=== PATIENT | female | born 1945 | race Caucasian/White ===

== ENCOUNTER 2021-09-01 11:30 | Emergency (ER) | payer MEDICARE, SELFPAY ==
--- NOTE | ~2021-09-01 | XR_ITS ---
EXAMINATION: XR chest 1V portable 09/01/2021 14:10 INDICATION: Leg cramps. Dyspnea. PROCEDURE: AP portable chest COMPARISON: No prior studies for comparison. FINDINGS: The lungs are clear. The cardiomediastinal silhouette is within normal limits. There are no pleural effusions. There is no pneumothorax suspected. IMPRESSION: 1: NO ACUTE CARDIOPULMONARY DISEASE. Reviewed, dictated and finalized at location B. M SPECIALIST
[2021-09-01 11:39] VITALS: BP 151/86; PULSE 84; RESP 18; TEMP 36.7; O2SAT 96
--- NOTE | 2021-09-01 13:38 | ED.EXTPRO ---
HPI - Extremity Problem General Chief complaint: Extremity Problem,Nontraumatic Stated complaint: Cramping of lower extremities, hx. of parkinsons Time Seen by Provider: 09/01/21 13:34 Source: patient Limitations: no limitations History of Present Illness HPI Narrative: Patient presents with not able to sleep for the last few days. Intermittent lower legs cramps for months. History of parkinsonism last time was seen by her neurologist every 2020, patient is fully vaccinated for COVID-19, feels dehydrated. Patient feels that her medication is not working. Patient is fully vaccinated for COVID-19. Related Data Allergies Allergy/AdvReac Type Severity Reaction Status Date / Time Sulfa (Sulfonamide AdvReac Dry Eye Verified 09/01/21 12:52 Antibiotics) Review of Systems Review of Systems: CONSTITUTIONAL: Denies fever, chills, or sweats. EYES: Denies visual changes, redness, or discharge. ENT: Denies rhinorrhea, congestion, sore throat, or otalgia. CARDIOVASCULAR: Denies chest pain, palpitations, or edema. RESPIRATORY: Denies cough or dyspnea. GASTROINTESTINAL: Denies abdominal pain, nausea, vomiting, or diarrhea. GENITOURINARY: Denies dysuria or hematuria. SKIN: Denies rash or itching. MUSCULOSKELETAL: Denies back pain, joint pain, or myalgia. NEUROLOGIC: Denies headache, numbness, or weakness. PSYCHIATRIC: Denies anxiety or depression. Exam Narrative: General appearance: Well-developed, well-nourished, restless, stationary tremors Skin: Normal color Head: Normocephalic, nontraumatic Eyes: Clear conjunctiva ENT: Oropharynx normal, ears normal, nose normal Neck: Supple, nontender Chest and respiratory: Airway patent, no respiratory distress, no accessory muscle use Heart: Regular rate/rhythm Abdomen: Soft, nontender, no organomegaly, quiet bowel sounds Vascular: Normal peripheral pulses, normal capillary refill. Musculoskeletal: Slight diffuse tenderness of the lower legs below the knee bilaterally, no bruises, no swelling, no hardening of the calf muscles or localized tenderness. Neurologic: Alert and oriented ?3, CERAMIC SAW TENDER is normal as tested, no gross motor deficit Course Course Emergency Course: Stable Vital Signs Vital signs: Vital Signs Temperature 36.7 C 09/01/21 11:39 Pulse Rate 84 09/01/21 11:39 Respiratory Rate 18 09/01/21 11:39 Blood Pressure 151/86 H 09/01/21 11:39 Pulse Oximetry 96 09/01/21 11:39 Temperature 36.7 C 09/01/21 11:39 Pulse Rate 84 09/01/21 11:39 Respiratory Rate 18 09/01/21 11:39 Blood Pressure 151/86 H 09/01/21 11:39 Pulse Oximetry 96 09/01/21 11:39 MDM - Extremity (Nontraumatic) MDM Narrative Medical decision making narrative: Progression of parkinsonism, depression and insomnia are my concern. Labs, chest x-ray, UA ordered, Valium 5 mg IV ordered. Differential Diagnosis Differential diagnosis: Likely other (Electrolyte imbalance, progression of parkinsonism, depression and insomnia) Critical Care Time Critical Care Time Critical Care Time: Yes Total Critical Care Time: 35 Discharge Plan Discharge Follow-up/Referrals: PHYSICIAN NOT ON STAFF,NONSTAFF [Primary Care Provider] -
--- NOTE | 2021-09-01 14:07 | PC.NURSE ---
Xray at bedside.
[2021-09-01] MEDS: diazePAM INJ (*CRX) 10 MG/2 ML SYRINGE 5 MG IV PUSH (14:13)
[2021-09-01] MEDS: SODIUM CHLORIDE 0.9% IV 1,000 ML 999 ML IV CONT (14:13)
[2021-09-01 14:24] LABS: Basophils Percent Auto 0.5 % (0.2-1.2); Eosinophils Percent Auto 0.4 % (0-4.4); Hematocrit 37.4 % (37.0-47.0); Immature Granulocyte Absolute 0.02 K/mm3 (0.00-0.031); Immature Granulocyte Percent A 0.4 % (0-0.5); Lymphocytes Absolute Auto 0.81 K/mm3 (0.9-3.2); Lymphocytes Percent Auto 14.2 % (18.3-44.2); Mean Corpuscular HGB Conc 32.1 g/dl (32-36); Mean Corpuscular Hemoglobin 30.5 pg (26-34); Mean Corpuscular Volume 95.2 fl (80-100); Mean Platelet Volume 9.7 fl (7.4-10.4); Monocytes Absolute Auto 0.4 K/mm3 (0.1-0.6); Monocytes Percent Auto 6.3 % (2.6-8.5); Neutrophils Absolute Auto 4.5 K/mm3 (1.3-6.7); Neutrophils Percent Auto 78.2 % (45.5-73.1); Platelet Count Result 299 k/mm3 (150-375); Red Blood Count 3.93 M/mm3 (4.2-5.4); Red Cell Distribution Width 13.8 % (11.5-14.5); White Blood Count 5.7 K/mm3 (4.5-10.0)
[2021-09-01 14:37] LABS: Alanine Aminotransferase 6 U/L (4-35); Albumin Level 4.3 g/dL (3.5-5.1); Alkaline Phosphatase 67 U/L (38-126); Anion Gap 6 mmol/L (8-16); Aspartate Amino Transferase 18 U/L (14-36); Bilirubin,Total 1.3 mg/dL (0.2-1.3); Blood Urea Nitrogen 19 mg/dL (7-17); Calcium 9.1 mg/dL (8.4-10.2); Carbon Dioxide 26 mmol/L (22-30); Chloride 99 mmol/L (98-107); Creatine Kinase 49 U/L (30-135); Estimated CRCL calculation 56 ml/min; Estimated Glomerular Filt Rate > 60; Glucose 97 mg/dL (65-110); Potassium 3.9 mmol/L (3.4-5.0); Sodium 131 mmol/L (137-145)
[2021-09-01 15:00] LABS: Add Urine Microscopic? YES; Appearance Urine Clear (Clear); Bilirubin Urine Negative (Negative); Blood Urine 1+ (Negative); Color Urine Yellow (Yellow); Glucose Urine UA Negative (Negative); Ketones Urine Trace mg/dL (Negative); Leukocyte Esterase Ur Negative LEU/UL (Negative); Nitrate Urine Negative (Negative); Protein Urine Negative (Negative); RBC Urine 0-2 /hpf (0-2); Specific Grav Ur 1.012 (1.001-1.035); Urobilinogen Urine Negative mg/dL (<2.0); WBC Urine 0-3 /hpf
[2021-09-01 15:40] VITALS: BP 150/78; PULSE 83; RESP 16; O2SAT 100
== END 2021-09-01 17:01 | disposition home or self-care (01) ==
PROVIDERS: Emergency Provider Emergency Medicine
DX: G20 Parkinson's disease (principal); R32 Unspecified urinary incontinence
CPT/HCPCS: 36415; 51701; 71045; 80053; 81001; 82550; 83735; 85025; 96361; 96374; 99284; J3360; J7030

== ENCOUNTER 2023-09-04 20:05 | Emergency (ER) | payer MEDICARE, SELFPAY ==
[2023-09-04] VITALS (15 sets, daily range): BP systolic 98; BP diastolic 62; PULSE 78–94; RESP 14–20; TEMP 36.6; O2SAT 94–98
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
--- NOTE | ~2023-09-04 | CT_ITS ---
EXAMINATION: CT abdomen pelvis w con DATE: 09/05/2023 01:55 INDICATION: Fall with possible free air on prior chest radiograph. TECHNIQUE: Computed tomography (CT) of the abdomen and pelvis was performed with 100 mL Omnipaque-350 intravenous contrast. Automated exposure control and iterative reconstruction technique were employe d. The dose-length product was 254.74 mGy-cm. COMPARISON: None FINDINGS: Dependent predominant atelectasis with corresponding volume loss in the bilateral lower lobes, left g reater than right. Heart size is normal. Aortic valve calcification. No pericardial effusion. There a re few scattered hepatic cysts the largest measuring 1.1 cm maximal diameter. Mild intra and extra he patic biliary ductal dilation which is within normal limits post cholecystectomy with surgical clips the gallbladder fossa. Spleen, pancreas and right adrenal gland are normal. There is some thickening of the left adrenal gland without a discrete nodule. Bilateral kidneys are normal. Bladder is normal. There are prominent gonadal veins which can be seen with pelvic vascular congestion syndrome along b oth the left and right sides of the atrophic normal for age uterus. There is moderate colonic diverti culosis with a sigmoid predominance and without adjacent inflammatory change to suggest diverticuliti s. No abnormal bowel wall thickening, obstruction or pneumatosis. No free intraperitoneal gas or flu id. No pathologically enlarged abdominal or pelvic lymphadenopathy. Small amount of scattered athero sclerotic plaque along the normal caliber abdominal aorta and common iliac arteries. Mild lower lumba r levocurvature and cephalad thoracolumbar dextrocurvature with moderate spondylosis. IMPRESSION: 1. No free intraperitoneal gas or other acute intra-abdominal/pelvic process. The curvilinear density seen at the lung bases on the prior radiograph appear to correspond to the fissures. Reviewed, dictated and finalized at location A. OBIAL SPECIALIST IMPRESSION: 1. No free intraperitoneal gas or other acute intra-abdominal/pelvic process. T he curvilinear density seen at the lung bases on the prior radiograph appear to correspond to the fissures.
--- NOTE | ~2023-09-04 | CT_ITS ---
EXAMINATION: CT brain wo con DATE: 09/04/2023 21:01 INDICATION: Status post fall. Head injury. TECHNIQUE: Computed tomography (CT) of the head was performed without intravenous contrast. The dose- length product was 756.67 mGy-cm. Automated exposure control and iterative reconstruction technique w ere employed. COMPARISON: None FINDINGS: Generalized atrophy. There are scattered mild periventricular and subcortical white matter changes, most likely related to small vessel ischemic disease (microangiopathy). No acute intracrania l hemorrhage, infarction, mass or mass effect. Right parietal scalp swelling. No depressed skull frac tures. IMPRESSION: 1. No acute intracranial abnormality. Reviewed, dictated and finalized at location A. ACING TECHNICIAN
--- NOTE | ~2023-09-04 | CT_ITS ---
EXAMINATION: CT cervical spine wo con DATE: 09/04/2023 21:02 INDICATION: Neck pain after fall. TECHNIQUE: Computed tomography (CT) of the cervical spine was performed without intravenous contrast. The dose-length product was 110 mGy-cm. Automated exposure control and iterative reconstruction tech nique were employed. COMPARISON: None FINDINGS: Straightening of cervical lordosis. There is degenerative anterolisthesis at C3-4 and C4-5. There is degenerative retrolisthesis at C5-6 and C6-7 with anterolisthesis at C7-T1. Odontoid proces s within normal limits. There is mild superior endplate compression deformity of T2, age indeterminat e. Lung apices are normal. Lung apices are normal. There is moderate multilevel facet and uncinate hy pertrophy. IMPRESSION: 1. Age-indeterminate mild superior endplate compression deformity of T2. Consider correlation with MR I. 2: Severe cervical spondylosis. Reviewed, dictated and finalized at location A. MAKER IMPRESSION: 1. Age-indeterminate mild superior endplate compression deformity of T2. Consid er correlation with MRI. 2: Severe cervical spondylosis.
--- NOTE | ~2023-09-04 | XR_ITS ---
XR chest 1V 09/04/2023 21:04 Indication: Cough. Status post fall. Procedure: AP portable chest Comparison: 09/01/2021 Findings: Heart size normal. No focal air space disease, pulmonary edema, pleural effusion or suspect ed pneumothorax. There are are thin pleural reflections at the lung bases, suspicious for free intrap eritoneal air Impression: 1: Possible free intraperitoneal air beneath the diaphragm. Consider correlation with CT abdomen. Reviewed, dictated and finalized at location A. ITALIST PHYSICIAN Impression: 1: Possible free intraperitoneal air beneath the diaphragm. Consider correlatio n with CT abdomen.
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
--- NOTE | 2023-09-04 20:26 | ECG_ITS ---
Measurements Intervals Davy Rate: 81 P: 36 WY: 153 QRS: 0 QRSD: 93 T: 40 QT: 343 QTc: 399 Interpretive Statements SINUS RHYTHM BASELINE ARTIFACT POSSIBLE LEFT ATRIAL ENLARGEMENT POSSIBLE LEFT VENTRICULAR HYPERTROPHY BORDERLINE ECG NO PREVIOUS ECG AVAILABLE FOR COMPARISON Electronically Signed On 09-05-2023 11:52:42 TOOLMAN by Ramesh Graham M.D.
[2023-09-04] MEDS: LORazepam INJ (*CRX) 2 MG/ML VIAL 1 MG IV PUSH (20:41)
[2023-09-04 20:49] LABS: Basophils Percent Auto 0.4 % (0.2-1.2); Eosinophils Absolute Auto 0.1 K/mm3 (0-0.3); Eosinophils Percent Auto 0.9 % (0-4.4); Hemoglobin 11.1 g/dL (12.0-15.0); Immature Granulocyte Absolute 0.02 K/mm3 (0.00-0.031); Immature Granulocyte Percent A 0.3 % (0-0.5); Lymphocytes Absolute Auto 1.39 K/mm3 (0.9-3.2); Lymphocytes Percent Auto 20.4 % (18.3-44.2); Mean Corpuscular HGB Conc 31.7 g/dl (32-36); Mean Corpuscular Hemoglobin 31.7 pg (26-34); Mean Platelet Volume 9.9 fl (7.4-10.4); Monocytes Absolute Auto 0.6 K/mm3 (0.1-0.6); Monocytes Percent Auto 8.4 % (2.6-8.5); Neutrophils Absolute Auto 4.7 K/mm3 (1.3-6.7); Neutrophils Percent Auto 69.6 % (45.5-73.1); Platelet Count Result 309 k/mm3 (150-375); White Blood Count 6.8 K/mm3 (4.5-10.0)
[2023-09-04] MEDS: ceFAZolin 2 GM/D5W 50 ML 2 GM/50 ML BAG IVPB (21:50)
[2023-09-04] MEDS: TETANUS,DIPHTHERIA,AC PERTUSSIS ADULT (0.5 ML) BOOSTRIX IM (21:55)
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
[2023-09-05] VITALS (10 sets, daily range): BP systolic 134; BP diastolic 97; PULSE 74–91; RESP 14–18; O2SAT 98–99
[2023-09-05 00:22] LABS: Appearance Urine Clear (Clear); Bacteria Urine None Seen /hpf; Bilirubin Urine Negative (Negative); Blood Urine Negative (Negative); Color Urine Yellow (Yellow); Glucose Urine UA Negative (Negative); Ketones Urine Trace mg/dL (Negative); Leukocyte Esterase Ur Trace LEU/UL (Negative); Nitrate Urine Negative (Negative); Non Pathogenic Casts 0-2; Protein Urine Negative (Negative); RBC Urine 0-2 /hpf (0-2); Specific Grav Ur 1.016 (1.001-1.035); Squamous Epithelial Cell Urine None seen /hpf (Few); Urobilinogen Urine 0.2 mg/dL (<2.0); WBC Urine 0-5 /hpf
[2023-09-05 00:48] LABS: Add Urine Microscopic? YES
[2023-09-05 01:17] LABS: Alanine Aminotransferase 7 U/L (6-35); Albumin Level 4.1 g/dL (3.5-5.1); Alkaline Phosphatase 58 U/L (38-126); Anion Gap 8 mmol/L (8-16); Aspartate Amino Transferase 34 U/L (14-36); Bilirubin,Total 1.2 mg/dL (0.2-1.3); Blood Urea Nitrogen 25 mg/dL (7-17); Calcium 8.8 mg/dL (8.4-10.2); Carbon Dioxide 26 mmol/L (22-30); Chloride 103 mmol/L (98-107); Estimated CRCL calculation 47 ml/min; Estimated Glomerular Filt Rate > 60; Glucose 91 mg/dL (65-110); Potassium 3.5 mmol/L (3.4-5.0); Sodium 137 mmol/L (137-145)
== END 2023-09-05 03:27 | disposition home or self-care (01) ==
PROVIDERS: Emergency Provider Emergency Medicine
DX: S71.111A Laceration without foreign body, right thigh, initial encounter (principal); Z23 Encounter for immunization; G20.A1 Parkinson's disease without dyskinesia, without mention of fluctuations; R94.31 Abnormal electrocardiogram [ECG] [EKG]; W01.118A Fall on same level from slipping, tripping and stumbling with subsequent striking against other sharp object, initial encounter; W26.0XXA Contact with knife, initial encounter
CPT/HCPCS: 12002; 36415; 70450; 71045; 72125; 73552; 74177; 80053; 81001; 83735; 85025; 90471; 90715; 93005; 96365; 96375; 99284; J0690; J2060; Q9967

== ENCOUNTER 2025-04-18 17:40 | Inpatient (IN) | payer MEDICARE, SELFPAY ==
--- NOTE | ~2025-04-18 | CT_ITS ---
EXAMINATION: CT brain wo con DATE: 04/18/2025 20:44 INDICATION: HTN, weak, Hx Parkinsons . TECHNIQUE: Computed tomography (CT) of the head was performed without intravenous contrast. The mA wa s adjusted according to patient size. Iterative reconstruction technique was employed. The dose-lengt h product was 756.67 mGy-cm. COMPARISON: 09/04/2023. FINDINGS: No acute intracranial hemorrhage or extra-axial fluid collection. No hydrocephalus, mass, or herniation. No acute ischemic infarct. Unremarkable dural venous sinus attenuation. No acute osseous abnormality. The aerated spaces are clear. Mild atrophy and chronic white matter change. Atherosclerotic intracranial calcification. Bilateral l ens replacements. IMPRESSION: No acute intracranial process. Reviewed, dictated and finalized at location K.
--- NOTE | ~2025-04-18 | XR_ITS ---
EXAMINATION: XR chest 2V Exam Date/Time: 04/18/2025 20:42 CDT HISTORY: weakness Comparison: 09/04/2023. RESULT: Lines, tubes, and devices: None. Lungs and pleura: Clear. Stable left hemidiaphragm elevation. Cardiomediastinal silhouette: Stable. Other: No acute osseous or upper abdominal finding. IMPRESSION: No acute cardiopulmonary process. Reviewed, dictated and finalized at location K.
--- OUTSIDE RECORDS SUMMARY | 2025-04-18 17:42 | XMS_ITS | Encounter Summary ---
Author Organization [facility] Address 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 Gender Identity Not on file Sexual Orientation Straight 07/17/2024 8: 55 AM CDT documented as of this encounter Plan of Treatment Upcoming Encounters Date Type Department Care Team (Late st Contact Info) Description 07/10/2025 1:45 PM CDT Office Visit [facility] Endocrinology [address] [place] [address] Sky Reid MD [address] [place] [address] documented as of this encounter Procedures Procedure Name Priority Date/Time Associated Diagnosis Comments MRI BRAIN W WO CONTRAST Routine 01/30/2008 9:52 AM CDT documented in this encounter Results * MRI BRAIN W WO CONTRAST (01/30/2008 9:52 AM CDT) Anatomical Region Laterality Modality Head Other 01/30/2008 9:52 AM CDT Narrative 01/31/2008 4:46 PM CDT [facility] [address] [place], [place] [address] Admit Date: 01/30/2008 CECILIA RAM Sex: F Admit Prov: JAMES STAHL Date: 1945 Primary Care Prov: ROOSEVELT PERERA CMRN: [id number] Room: [facility]: [id number] IMAGING SERVICES Ordering Prov: N/A Accession Number: [id number] Interpretation MR imaging of brain with and without IV contrast 01/30/2008. History: Parkinson's disease, idiopathic peripheral neuropathy Scan protocol: The patient was scanned with standard brain protocol. Ventricles are midline without shift, dilatation or mass effect. No diffusion abnormalities are seen. No recent or remote hemorrhage is identified. No abnormal enhancement is seen after contrast administration. No abnormal hypopigmentation is evident. Impression: Negative exam . Dictated by: MIKEY GAVIN 01/30/2008 12:05 Electronically signed by: MIKEY GAVIN 01/31/2008 16:46 Transcribed: 01/30/2008 23:45 AMK Procedure Note Provider, Historical - 01/31/2008 [place] [address] [place], [place] [address] Admit Date: 01/30/2008 CECILIA RAM Sex: F Admit Prov: JAMES STAHL Date: 1945 Primary Care Prov: ROOSEVELT PERERA CMRN: [id number] Room: [facility]: [id number] IMAGING SERVICES Ordering Prov: N/A Interpretation MR imaging of brain with and without IV contrast 01/30/2008. History: Parkinson's disease, idiopathic peripheral neuropathy Scan protocol: The patient was scanned with standard brain protocol. Ventricles are midline without shift, dilatation or mass effect. No diffusion abnormalities are seen. No recent or remote hemorrhage is identified. No abnormal enhancement is seen after contrastadministration. No abnormal hypopigmentation is evident. Impression: Negative exam . Dictated by: MIKEY GAVIN 01/30/2008 12:05 Electronically signed by: MIKEY GAVIN 01/31/2008 16:46 Transcribed: 01/30/2008 23:45 AMK us James Stahl MD MR ORDERABLES Final Result documented in this encounter Visit Diagnoses Diagnosis Unspecified hereditary and idiopathic peripheral neuropathy documented in this encounter Care Teams Road Repairer Relationship Specialty [place] [address] [place] [address] PCP - General Family Practice 12/13/24 documented as of this encounter
--- OUTSIDE RECORDS SUMMARY | 2025-04-18 17:42 | XMS_ITS | Encounter Summary ---
Author Organization [facility] Address [address] [place] [address] Care Team Providers Care Operating Room Assistant Name Role Phone Dona Rayo MD Primary Care Provider Reason for Visit * Reason Onset Date Comments Updated POA 07/02/2023 Encounter Details Date Type Department Care Team (Late st Contact Info) Description 07/02/2023 Telephone [facility] Primary Care [address] [place] [address] Cherri Berumen MD NO ADDRESS ON FILE Updated POA Social History Tobacco Use Types Packs/Day Years Used Date Smoking Tobacco: Passive Smo ke Exposure - Never Smoker Cigarettes Smokeless Tobacco: Never Comments:My was a he gloria smoker- 40 yrs. 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 States there will be one gagandeep and her sister in the envelope. Call-back Number: [phone] (home) documented in this encounter Plan of Treatment Upcoming Encounters Date Type Department Care Team (Late st Contact Info) Description 07/10/2025 1:45 PM CDT Office Visit [facility] Endocrinology [address] [place] [address] Sky Reid MD [address] [place] [address] documented as of this encounter Visit Diagnoses Not on filedocumented in this encounter Care Teams Operating Room Assistant Relationship Specialty [place] [address] [place] [address] PCP - General Family Practice 12/13/24 documented as of this encounter
--- OUTSIDE RECORDS SUMMARY | 2025-04-18 17:42 | XMS_ITS | Encounter Summary ---
Author Organization [facility] Address [address] [place] [address] Phone Care Team Providers Care Sales And Customer Relations Rep Name Role Phone Marci Rodriguez MANUFACTURING PLANT MANAGER Unavailable [phone] Dona Rayo MD Primary Care Provider Encounter Details Date Type Department Care Team (Late st Contact Info) Description 04/16/2025 Telephone [facility] Movement Disorders [address] [facility] 7th [place] [address] Mervat Tse, RN Social History Tobacco Use Types Packs/Day Years Used Date Smoking Tobacco: Never Smokeless Tobacco: Never Alcohol Use Standard Drinks/Week Comments Not Currently 0 (1 standard drink = 0.6 oz pur e alcohol) AUDIT-C Answer Date Recorded Q1: How often do you have a drink containing alcohol? 4 or more times a week 12/08/2022 Q2: How many drinks containi ng alcohol do you have on a typical day when you are drinking? 1 or 2 Q3: How often do you have si x or more drinks on one occasion? 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 Please give last dose no later than 4pm. 270 tablet 3 04/17/2025 04/17/2026 midodrine (PROAMATINE) 2.5 mg tabletIndications: Symptomatic Orthostatic Hypotension Take 1 tablet (2.5 mg total) by mouth 3 (three) times a day With one 10 mg tab for a total dose of 12.5 mg 3 x day 90 tablet 11 04/17/2025 04/17/2026 documented in this encounter Miscellaneous Notes * Addendum Note - Mervat sTe RN - 04/17/2025 3:35 PM CDTAddended by: MERVAT TSE. on: 04/17/2025 03:35 PM Modules accepted: Orders * Telephone Encounter - Mervat Tse RN - 04/17/2025 3:26 PM CDT Reply: Ranjana King recommends for you to go ahead and increase the midodrine to 12.5 mg per dose. I sent the 2.5 mg tabs to your [facility] to add to the 10 mg 3 x day. She still needs to see the sit to stand pressures to see if you need to go higher. Take Mervat Zelaya, RN Movement Disorders Department of Neurology Christine Andrade NP to [facility] RN (Selected Message) 04/17/25 2:57 PM Lets just increase the midodrine by 2.5 mg per dose unless she is already on 15 mg. We then need tosee the sit to stand pressures to see if she needs to go higher. Sounds like she is also having orthostatic headache. Thanks J * Telephone Encounter - Mervat Tse RN - 04/17/2025 1:10 PM CDT Reply: Good afternoon, Be sure to hydrate more and salt your diet. If the lightheadedness persists or worsens, let us know. Take Mervat Zelaya RN Movement Disorders Department of Neurology ----- Message ----- From:Sun Hicks Sent:04/17/2025 12:43 PM CDT To:Patient Medical Advice Request Message List Subject:Christine: I am getting around better today. My PT person took my BP this morning. Seated 98/84 . Standing 96/82. On the positive side-----I got the Pessary and it is helping control my bladder. Every littl bit helps. I will keep in touch. * Telephone Encounter - Mervat Tse RN - 04/17/2025 10:12 AM CDT Reply: Hello, We understand this is challenging. The important thing to consider is the BP may be ok seated, but it is when you stand up that it is a problem. Please do get a cuff as soon as possible to measure sit to stand BPs. Please also aggressively increase both salt and fluids. Increasing fluids is not enough unless you also increase the salt so that you retain the fluids. Mervat Juárez RN Movement Disorders Department of Neurology Sun [facility]ell [facility] Admin Pool (supporting Christine Andrade NP)16 hours ago (5:13 PM) Yes, I am taking mididrine 10 mg at 6 am, 11 am and 4 pm. The amantadiine at 10 am and 4pm. I am small we are having some trouble finding a cuff to fit me. We're looking. BPs taken by Home Health were OK to slightly low. I will be diligent about hydration. Tisha can't continue to take care of me by herself. She has her own problems. * Telephone Encounter - Mervat Tse RN - 04/16/2025 3:20 PM CDT Reply: Good afternoon, Thank you for the update and I shared this with Christine. You are taking the midodrine 10 mg 3 x day? Are you staying well hydrated (at least 64 oz fluids daily)? Do you have recent blood pressure readings seated, then standing? We may need to increase the midodrine more to keep the blood pressure stable enough for you to tolerate the amantadine and levodopa. Take Care, Mervat FLORES, RN Movement Disorders Department of Neurology ----- Message ----- From:Sun Hicks Sent:04/16/2025 1:26 PM CDT To:Christine Andrade NP Subject:Christine: Things have gone down hill fast. I thought the Amanatadine was doing some good. I was having less Dysonesia. The only problem I was as haveing was having some dizziness . Things have gotten much worse. I can't walk on my even with a walker. I fell twice last week on successive nights and I don'twant to fall again. Tisha fell one night. I felt like I was passing out when I fell both times and I was using my walker. I have taken all my pills. What do I do NOW!! Please contact me today. Thanks Fabiola documented in this encounter Plan of Treatment Not on file documented as of this encounter Visit Diagnoses Diagnosis Orthostatic hypotension documented in this encounter Discontinued Medications Medication Sig Discontinue Reason Start Date End Da te midodrine (PROAMATINE) 10 mg tabletIndications:Symptom atic Orthostatic Hypotension Take 1 tablet (10 mg total) by mouth 3 (three) times a day Please give last dose no later than 4pm. Reorder 03/12/2025 04/17/2025 documented as of this encounter Care Teams Sales And Customer Relations Rep Relationship Specialty [place] [address] [place] [address] PCP - General Family Medicine 03/12/25 Marci Rodriguez NP Nurse Practitioner Neurology 08/02/22 documented as of this encounter
--- OUTSIDE RECORDS SUMMARY | 2025-04-18 17:42 | XMS_ITS | Encounter Summary ---
Author Organization [facility] Address [address] [place] [address] Phone Care Team Providers Care Grocery Clerk Marking Name Role Phone Marci Rodriguez MUNITIONS HANDLER Unavailable [phone] Dona Rayo MD Primary Care Provider Encounter Details Date Type Department Care Team (Late st Contact Info) Description 04/18/2025 Telephone [facility] Movement Disorders [address] [facility] [address]th [place] [address] Brynn Lagunas MD PhD [address] [place] [address] Social History Tobacco Use Types Packs/Day Years [...] on file Legal Sex Female 4:53 AM TRANSITION LEAD Gender Identity Female 10/29/2021 11:06 AM TRANSITION LEAD Sexual Orientation Not on file documented as of this encounter Miscellaneous Notes * Telephone Encounter - Gogo Tse RN - 04/18/2025 3:19 PM CDT I called back and spoke with ESTHER Bashir. She said on arrival at the visit today, Fabiola said she did not feel well and thought she should go to the hospital . She is extremely dizzy, lightheaded and cannot even get up. Her sister is unable to assist her well and her sister was also advised to go [facility] ED for her declining health. She is having dyskinesia, rapid breathing, weakness in legs, and overall declining. She was unable to go sampler pickup the extra midodrine, so she did not take her amantadine today. BP was 118/60 seated, unable to get standing. Krysten and Bruno as well as Fabiola agreed to go to the hospital for fluids, assessment, and placement options. We discussed going to [facility] and this isnot possible and she does not want an ambulance. She will go to [facility] and wants to go to their associated rehab. I suggested providing our clinic info and encouraged the care team there to reach out with any concerns we can help with. I thanked her for the call. * Telephone Encounter - Sandeep Ariza RMA - 04/18/2025 3:08 PM CDT (BM) Pt is having a decline and OT would like a call back to discuss condition. She is recommending the pt go to the ER. Call back [phone] ( direct line) documented in this encounter Plan of Treatment Not on file documented as of this encounter Visit Diagnoses Not on filedocumented in this encounter Care Teams Grocery Clerk Marking Relationship Specialty [place] [address] [place] [address] PCP - General Family Medicine 03/12/25 Marci Rodriguez NP Nurse Practitioner Neurology 08/02/22 documented as of this encounter
--- OUTSIDE RECORDS SUMMARY | 2025-04-18 17:42 | XMS_ITS | Encounter Summary ---
Author Organization [facility] Address [address] [place] [address] Care Team Providers Care Study Abroad Coordinator Name Role Phone Dona Rayo MD Primary Care Provider [phone] Encounter Details Date Type Department Care Team (Late st Contact Info) Description 01/25/2007 Outpatient Historical [facility] Neurology [place] [address] [place] [address] Musa Tinajero MD NO ADDRESS ON FILE Social History Tobacco Use Types Packs/Day Years Used Date Smoking Tobacco: Never Assessed Comments Unknown Sex and Gender Information Value Date Recorded Sex Assigned at Female 07/17/2024 8:55 AM CDT Legal Sex Female 3:37 AM SOLVENT PLANT TREATER Gender Identity Not on file Sexual Orientation Straight 07/17/2024 8: 55 AM CDT documented as of this encounter Plan of Treatment Upcoming Encounters Date Type Department Care Team (Late st Contact Info) Description 07/10/2025 1:45 PM CDT Office Visit [facility] Endocrinology [address] [place] [address] Sky Reid MD [address] [place] [address] documented as of this encounter Visit Diagnoses Not on filedocumented in this encounter Care Teams Study Abroad Coordinator Relationship Specialty [place] [address] [place] [address] PCP - General Family Practice 12/13/24 documented as of this encounter
--- OUTSIDE RECORDS SUMMARY | 2025-04-18 17:42 | XMS_ITS | Clinical Summary ---
Author Organization [facility] Address [address] [place] [address] Care Team Providers Care Cycle Repairer Name Role Phone Marci Rodriguez FRAMING MILL SUPERVISOR Unavailable [phone] Dona Rayo MD Primary Care Provider Allergies Active Allergy Reactions Criticality Noted Date Comments Sulfa (Sulfonamide Antibiotics) Swelling,Rash Medium 04/01/2009 Swollen eyes rash Medications acetaminophen ER (TYLENOL) 650 mg 8 hr tablet Take 1 tablet (650 mg total) by mouth every 8 (eight) hours as needed for pain Active cholecalciferol 400 unit capsule 07/10/20 23 Active clobetasoL (TEMOVATE) 0.05 % ointment Apply topically 2 (two) times a day Active carbidopa-levodopa (Rytary) 48.75-195 mg capsule, extended release TAKE 2 CAPSULES BY MOUTH AT 6 AM, 1 CAPSULE BY MOUTH AT 10 AM, 2 CAPSULES BY MOUTH AT 2 PM, 1 CAPSULE BY MOUTH AT 6 PM, AND 3 CAPSULES BY MOUTH AT 10 PM 810 capsule 3 08/15/20 24 Active Additional Information Patient taking differently: 2 caps at 6am, 1 at 9-10am, 2 at 2pm, 1 at 5-6pm, 3 tabs at 10pm., Reported on 03/12/2025 calcium carbonate-vitamin D3 (Calcium 600 + D,3,) 1,500 mg (600 mg elemental)-200 unit capsule 07/10/20 Active zoledronic acid in sodium chloride 0.9% 100 mL IVPB 07/09/20 23 Active melatonin 5 mg tablet Take 1 tablet (5 mg total) by mouth nightly as needed Active multivitamin tablet Take 1 tablet by mouth daily Active baclofen (LIORESAL) 10 mg tablet Take 1 tab as needed overnight for leg cramping. 30 tablet 09/11/20 24 Active Myrbetriq 50 mg tablet extended release 24 hr TAKE 1 TABLET BY MOUTH DAILY 90 tablet 11/14/19 25 Active carbidopa-levodopa (SINEMET) 25-100 mg per tablet TAKE 1-2 TABLETS BY MOUTH EVERY DAY NEEDED FOR AWAKENING IN THE MIDDLE OF THE NIGHT DIRECTED 60 tablet 11/27/19 25 Active magnesium gluconate 200 mg tabletIndications: hypomagnesemia 1 tablet (200 mg total) Active amantadine (SYMMETREL) 100 mg capsule Take 1 capsule (100 mg total) by mouth 2 (two) times a day At 10am and 6pm (or 4pm) 60 capsule 03/12/20 025 Active clonazePAM (KlonoPIN) 0.5 mg disintegrating tablet Take 1 tablet (0.5 mg total) by mouth 2 (two) times a day as needed for seizures Active midodrine (PROAMATINE) 2.5 mg tabletIndications: Symptomatic Orthostatic Hypotension Take 1 tablet (2.5 mg total) by mouth 3 (three) times a day With one 10 mg tab for a total dose of 12.5 mg 3 x day 90 tablet 04/17/20 026 Active midodrine (PROAMATINE) 10 mg tabletIndications: Symptomatic Orthostatic Hypotension Take 1 tablet (10 mg total) by mouth 3 (three) times a day With one 10 mg tab for a total dose of 12.5 mg 3 x day. Please give last dose no later than 4pm. 270 tablet 04/17/20 25 026 Active midodrine (PROAMATINE) 10 mg tabletIndications: Symptomatic Orthostatic Hypotension Take 1 tablet (10 mg total) by mouth 3 (three) times a day Please give last dose no later than 4pm. 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 She had good benefits from the last botulinum toxin injections but had mild weakness with the neck injections. The benefits have now started wearing off and she would be an appropriate candidate for repeat injections. The potential risks (including but not limited to bruising, hematoma, neck weakness, weakness, dysphagia, infection, and injection site pain etc.), benefits, alternatives to chemodenervation were discussed and a signed consent was obtained. We decided to try a lower dose given the mild weakness with the second round of injections. Recommendations: Botox injected as detailed below. 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 She had good benefits from the last botulinum toxin injections. This benefits have now started wearing off and she would be an appropriate candidate for repeat injections. The potential risks (including but not limited to bruising, hematoma, neck weakness, weakness, dysphagia, infection, and injection site pain etc.), benefits, alternatives to chemodenervation were discussed and a signed consent was obtained. Recommendations: Botox injected under EMG guidance as detailed below. 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 She has never had botulinum toxin injections for this and would be a good candidate for botulinum toxin injections. The potential risks (including but not limited to bruising, hematoma, neck weakness, dysphagia, infection and injection site pain etc.), benefits, alternatives to chemodenervation were discussed. She wanted to proceed with this and a signed consent was obtained. She would likely need a higher dose for optimal benefits. Recommendations: Botox injected as detailed below. 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 Dr. Lagunas personally reviewed the records available in our system and checked MRI Brain and C-spine with/without contrast as well as labwork and these were normal. She had good response to levodopa but with consistent early wearing OFFs (stiffness, freezing of gait, tremor) which improved dramatically with Rytary but now her dyskinesia, which is likely biphasic, is incredibly bothesome and she seems to move her neck all day long, this also affects her ability to walk and balance. 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 She is getting botulinin for her dystonia which is helpful. Changing to smaller doses more frequently was only mildly helpful. She also has wearing off. We will cautiously try amantadine, watching for side effects. In anticipation of the amantadine dropping her BP, we will increase midodrine. Her orthostasis has been well controlled recently but she does have history of near syncope causing falls. We will increase her midodrine today and ask her to check sit to stand BPs for a week as she starts amantadine and increased midodrine and report in. We will rx a BP cuff/machine. I will also order home PT and OT to work with her and she is homebound due to her PD, FOG, imbalance, falls, and orthostasis. We had another discussion about the treatment options, strategies, prognosis and I recommended that she considers DBS (likely GPi). Though she does have tremor, that is not nearly as bothersome as the dyskinesia. We discussed that GPI DBS may be her best and most effective treatment but she has concerns about safety given her age and level of disability. We have told her that even though a combination of IR levodopa and COMT inhibitor would have been easier to titrate than her current regimen of Rytary, I feel the severe dyskinesia would still be the limiting factor in dopa optimization. Her cognition is clear. The decrease in Rytary per dose may also help orthostasis. Her dystonia at night is bothersome at times and could keep her awakebut this is better with PRN low dose baclofen that she takes if she notes cramping (only at night). She tapered off of ropinirole with no issue as it was not helpful for her. She does not have internet or smart TV for online exercises. She has severe RBD symptoms and has reportedly fallen out of bed in the past but this is not currently a major issue for her so we will continue to monitor. Insomnia and RBD are a bit better with melatonin. Trazodone or mirtazapine could worsen her RBD. She has some anxiety that can be bothersome at times. Her blood related sister takes escitalopram with success but she would like to hold off. Myrbetriq has been helpful for her OAB. She has some constipation and should start PRN Miralax or docusate sodium. Recommendations: 1. Start amantadine. 2. Increase midodrine in anticipation of amantadine dropping BPs. 3. Same Rytary overall but could change the timing of the 6pm dose to 5pm and if that caused wearing off by 8 or 9pm, then separate the 3 caps at bedtime to 1 cap around 8 or 9pm and 2 at bedtime. If having lots of dyskinesia, could cut dose of Rytary back of push the dose a little bit. 4. Same PRN baclofen. 5. Consider trying escitalopram for anxiety. 6. We will start home PT and OT today. 7. Can try low dose Miralax as needed for constipation or fine to try Sennakot or stool softener. My total encounter time was 48 minutes which was spent in the activities documented in the note including interview, assessment, education, and support. This includes time spent prior to the visit with 24 hours of the visit and after the visit in direct care of the patient. This time does not include time spent in any separately reportable services. I am seeing this patient for a chronic condition and will have continued care with this patient. 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 Dr. Lagunas personally reviewed the records available in our system and checked MRI Brain and C-spine with/without contrast as well as labwork and these were normal. She had good response to levodopa but with consistent early wearing OFFs (stiffness, freezing of gait, tremor) which improved dramatically with Rytary but now her dyskinesia, which is likely biphasic, is incredibly bothesome and she seems to move her neck all day long, this also affects her ability to walk and balance. 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 She is getting botulinin for her dystonia which is helpful. I will try changing her doses of Rytary to smaller doses to see if this helps with both dyskinesia and orthostasis. However, this may worsen her wearing off with gait freezing, stiffness or tremor. We had another discussion about the treatment options, strategies, prognosis and I recommended that she considers DBS (likely GPi). Though she does have tremor, that is not nearly as bothersome as the dyskinesia. We discussed that GPI DBS may be her best and most effective treatment but she has concerns about safety given her age and level of disability. We have told her that even though a combination of IR levodopa and COMT inhibitor would have been easier to titrate than her current regimen of Rytary, I feel the severe dyskinesia would still be the limiting factor in dopa optimization. Her cognition is clear and we could certainly consider amantadine for dyskinesia but she has orthostasis at times (though better with midodrine) and I do have concerns about that and cognitive side effects. The decrease in Rytary per dose may also help orthostasis. Her dystonia at night is bothersome at times and could keep her awake. I will give a low dose of PRN baclofen for if this keeps her up at night but she should watch for drowsiness or confusion. She tapered off of ropinirole with no issue as it was not helpful for her. We will refer to PT today. She does not have internet or smart TV for online exercises. She has severe RBD symptoms and has reportedly fallen out of bed in the past but this is not currently a major issue for her so we will continue to monitor. Insomnia and RBD are a bit better with melatonin. Trazodone or mirtazapine could worsen her RBD. She has some anxiety that can be bothersome at times. Her blood related sister takes escitalopram with success but she would like to hold off. Myrbetriq has been helpful for her OAB. Recommendations: 1. We will try changing timing and doses of Rytary to 1 cap every 3 hours vs taking 2 caps at some doses to see if this helps dyskinesia. 2. Start baclofen. 3. Same midodrine. 4. Same PRN carbi/levo. 5. Consider trying escitalopram for anxiety. 6. We will start PT today. 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 She has good response to levodopa but with consistent early wearing OFFs; further optimization of dopa is precluded by severe generalized dyskinesias that lasts almost all day and contributes to her gait imbalance and falls (clearly evident at this office visit). She also has likely diphasic dystonia, but now more with more bothersome OFF period dystonia with particularly bothersome right leg and neck cramping. We had a discussion regarding DBS/FUS, she has decided to not pursue it at this juncture. She would be an excellent candidate for Duopa intestinal gel or continuous SQ pump (as and when it becomes available), she is very interested about the SQ pump. She has tried additional IR dopa on awakening in the middle of the night in the interim due to severe OFF period painful dystonia that continues to awaken her from sleep; this was not helpful. We discussed the options; she takes Rytary at bedtime and the next option would be to uptitrate this. However she has had more RBD symptoms and has fallen out of bed in the past and this could worsen with additional dopa. She has tried low dose melatonin in the past; she will reinitiate this and uptitrate rapidly as discussed. If benefits are not adequate, will consider switching to clonazepam. She would benefit from SSRI given the underlying anxiety, but she wanted to hold off on it at this time. Her orthostatic symptoms have been adequately addressed at the current dose of midodrine, but this needs to be monitored with further uptitration of dopa. She has noticed more tightening in her neck as the prior botulinum toxin injections have started wearing off. But given the subjective neck weakness with the prior injections, we have decided to delay the next round to allow more time for the previous dose to wear off. Recommendations: 1. Same Rytary for now; she does not want to pursue DBS/FUS at this time, she would be an excellent candidate for SQ pump as and when it becomes available. 2. Start melatonin 5 mg q PM, to be uptitrated by 5 mg q week if benefits are inadequate to a maximum tolerated dose of 15 mg q PM; strategies and side effects discussed. 3. Will maintain a low threshold to transition to clonazepam if benefits inadequate with melatonin. 4. Continue Botox injections as per new schedule. 5. Continue daily exercise and stretching. 6. To see Christine in 6 months. My total encounter time on 08/24/2023 was 47 minutes (face to face encounter: 1:42 PM - 2:24 PM), which was spent in the activities documented in the note. This includes time spent prior to the visit and after the visit in direct care of the patient. This time does not include any separately reportable services. 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 She has good response to levodopa but with consistent early wearing OFFs; further optimization of dopa is precluded by severe generalized dyskinesias that lasts almost all day and contributes to her gait imbalance and falls. She also has likely diphasic dystonia, but now more with more bothersome OFF period dystonia with particularly bothersome right leg and neck cramping. She has decided to not puruse DBS; she would be an excellent candidate for Duopa intestinal gel or continuous SQ pump (as and when it becomes available). Given her bothersome OFF period dystonia that awakens her from sleep in the middle of the night, we decided to start with additional IR dopa that she would try to grind and take with orange juice; the latter has caused some GI problems in the past and she will monitor this closely. We deferred the Botox injections given she still complains of subjective neck weakness (Of note, objectively her neck flexion and extension were both 5/5 at this office visit) and will couple this with injections for bothersome leg dystonia. I personally feel she is no longer is bothered by the plantiflexion of 2nd-5th toes as the benefits from the prior Botox injections still persist. Recommendations: 1. Same Rytary for now. 2. Start IR dopa (crushed with orange juice) on awakening in the middle of the night; further dose adjustment to be guided by response and/or dose limiting side effects. 3. Defer Botox injections by 2 months; will reduce Botox dose for neck injections at the next visit. 3. Continue daily exercise and stretching. Assessment & Plan (02/19/2023 4:43 PM CDT): She has stage 3 parkinsonism manifest as insidious onset, gradually progressive, asymmetric onset right leg rest tremor (2001), followed by right hand hand tremor (2020), gait difficulty with postural instability (2016) and falls and rigidity, bradykinesia, hypomimia, hypophonia and micrographia. 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 Dr. Lagunas personally reviewed the records available in our system and checked MRI Brain and C-spine with/without contrast as well as labwork and these were normal. She has good response to levodopa but with consistent early wearing OFFs (stiffness, freezing of gait, tremor) which improved dramatically with Rytary but now her dyskinesia, which is likely biphasic, is incredibly bothesome and she seems to move her neck all day long, this also affects her ability to walk and balance. 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 She is getting botulinin for her dystonia which is helpful. I will try changing her doses of Rytary to smaller doses more frequently to see if this helps with both dyskinesia and orthostasis. Today, her dyskinesia was severe and was clearly peak dose. If changing doses to lower doses more frequently doesn't work, I would cut back the amount of Rytary at every other dose but also watch for worsened wearing off with gait freezing, stiffness or tremor. We had another discussion about the treatment options, strategies, prognosis and I recommended that she considers DBS (likely GPi). She will soon have DBS IOV but also wants to discuss FUS since it is less invasive. I warned that I did not think it would help her substantial dyskinsia unless they are able to do FUS to the GPI. Though she does have tremor, that is not nearly as bothersome as the dyskinesia. We discussed that GPI DBS may be her best and most effective treatment but she has concerns about safety given her age and level of disability. We have told her that even though a combination of IR levodopa and COMT inhibitor would have been easier to titrate than her current regimen of Rytary, I feel the severe dyskinesia would still be the limiting factor in dopa optimization. Her cognition is clear and we could certainly consider amantadine for dyskinesia but she has orthostasis and is lightheaded so we would first need to control BPs before this could even be attempted. I asked them to get orthostatics, preferably when dyskinesia is not severe as an electronic cuff frequently will not read for her. They will report those in a week. The decrease in Rytary per dose may also help orthostasis. She tapered off of ropinirole with no issue as it was not helpful for her. She is enrolled in PT currently. She does not have internet or smart TV for online exercises. She has severe RBD symptoms and has reportedly fallen out of bed in the past but this is not currently a major issue for her so we will continue to monitor. She has some insomnia but is not interested in any drug that may make her sleepy but could try melatonin. Trazodone or mirtazapine could worsen her RBD. She has some anxiety that can be bothersome at times. Her blood related sister takes escitalopram with success and we will try that. She is bothered by her OAB and we will increase her Myrbetriq, which also may help with her low BPs. Recommendations: 1. We will try changing timing and doses of Rytary. 2. Start escitalopram. 3. Increase Myrbetriq to 50 mg every day. 4. Same midodrine but check BPs sit to stand and report in. 5. Continue PT. Assessment & Plan (08/05/2022 2:35 PM CDT): She has stage 3 parkinsonism manifest as insidious onset, gradually progressive, asymmetric onset right leg rest tremor (2001), followed by right hand hand tremor (2020), gait difficulty with postural instability (2016) and falls and rigidity, bradykinesia, hypomimia, hypophonia and micrographia. 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 I personally reviewed the records available in our system; this does not include any imaging. She has an upgoing toe on the right and given her severe neck dystonia; will check MRI Brain and C-spine with/without contrast; she remembers last having a MRI over 10 years ago, the images/reports not available to me at this time. She has good response to levodopa but with consistent early wearing OFFs; further

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
--- OUTSIDE RECORDS SUMMARY | 2025-04-18 17:42 | XMS_ITS | Encounter Summary ---
Author Organization [facility] Address [address] [place] [address] Care Team Providers Care Publication Specialist Name Role Phone Dona Rayo MD Primary Care Provider [phone] Encounter Details Date Type Department Care Team (Latest Contact Info) Description 10/21/2024 Results Follow-Up [facility] Endocrinology [address] [place] [address] Sky Reid MD [address] [place] [address] CBC WITH DIFFERENTIAL, COMPREHENSIVE METABOLIC PANEL, TSH, Additional followed-up results: 2 Social History Tobacco Use Types Packs/Day Years Used Date Smoking Tobacco: Never Cigarettes Passive Smoke Exposure: Yes Smokeless Tobacco: Never Comments:My was a he gloria smoker- 40 yrs. 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 Gender Identity Not on file Sexual Orientation Straight 07/17/2024 8: 55 AM CDT documented as of this encounter Plan of Treatment Upcoming Encounters Date Type Department Care Team (Late st Contact Info) Description 07/10/2025 1:45 PM CDT Office Visit [facility] Endocrinology [address] [place] [address] Sky Reid MD [address] [place] [address] documented as of this encounter Visit Diagnoses Not on filedocumented in this encounter Care Teams Publication Specialist Relationship Specialty [place] [address] [place] [address] PCP - General Family Practice 12/13/24 documented as of this encounter
--- OUTSIDE RECORDS SUMMARY | 2025-04-18 17:42 | XMS_ITS | Continuity of Care Document ---
Author Organization [facility] [place] [address] [place] [id number] Phone Care Team Providers Care Crane Helper Name Role Phone Jayjay Orlando MD Unavailable Unavailable Allergies, Adverse Reactions, Alerts Substance Reaction Status Criticality Sulfa (Sulfonamide Antibiotics) Active No Information Medications Medication Instructions Dosage Effective Dates (start - stop) Status Comments carbidopa 25 mg-levodopa 100 mg tablet take 1 tablet by oral route 4 times every day - Active carbidopa ER 50 mg-levodopa 200 mg tablet,extended release take 1 tablet by oral route 2 times every day 1.00 tablet - Active Procedures Procedure Date Refraction Eye Exam & Treatment Office/outpatient Visit, Est Office/outpatient Visit, Est Office/outpatient Visit, Est Office/outpatient Visit, Est Office/outpatient Visit, Est Fundus Photography W/ Report Eye Exam & Treatment Refraction Fundus Photography W/ Report Eye Exam & Treatment Eye Exam & Treatment Fundus Photography W/ Report Office/outpatient Visit, Est Refraction Fundus Photography W/ Report Post-op Follow-up Visit After Cataract Laser Surgery No Charge Refraction After Cataract Laser Surgery Post-op Follow-up Visit Post-op Follow-up Visit No Charge Refraction Post-op Follow-up Visit Remove Cataract, Insert Lens Post-op Follow-up Visit No Charge No Refraction Post-op Follow-up Visit Post-op Follow-up Visit Remove Cataract, Insert Lens IOLMaster-Professional Contact Lens Assessment Office/outpatient Visit, Est Corneal Topography Office/outpatient Visit, Est IOLMaster Office/outpatient Visit, Est Eye Exam & Treatment Fundus Photography W/ Report Office/outpatient Visit, Est Eye Exam & Treatment Fundus Photography W/ Report Refraction Eye Exam & Treatment Fundus Photography W/ Report Refraction Eye Exam & Treatment Fundus Photography W/ Report Advance Directives Directive Yes / No Effective Date File Name No Information Encounters Encounter Description Practice Location Reason(s) For Visit Diagnoses Date Provider Providers Copied on Encounter [facility], [address], [place], [place], [address], [place] tel:[phone] SEC Chuy BORDEN Professional Complete Exam (chief complaint) Presence of intraocular lensChalazion of right lower eyelidMeibomia n gland dysfunction (MGD) of both eyesPunctate keratitis, bilateral 201 [address] Dar[address], [facility], [place], [place], [address], [place]. tel:[phone] Referring Provider: Clifford Walton, [id number], [place], [address] . tel:[phone] Office/outpa tient Visit, Est [facility], [address], [place], [place], [address], [place] tel:[phone] SEC Chuy BORDEN Professional 3 wks Chalazion f/u (chief complaint) Chalazion of right lower eyelid Jan- 9 Darion Ro. [address] [facility], [facility], [place], [place], [address], [place]. tel:[phone] Referring Provider: Clifford Walton, [facility] [place] [address], [place], [address] . tel:[phone] Office/outpa tient Visit, [facility], [address] [place], [place] [address], [place], [place], [address], [place] tel:[phone] SEC Chuy BORDEN Professional WIE (chief complaint) Chalazion of right lower eyelidMeibomia n gland dysfunction (MGD) of both eyesOcular rosaceaPunctat e keratitis, bilateral Dec- 9 Dar[address] [facility], [facility], [place], [place], [address], [place]. tel:[phone] Referring Provider: Clifford Walton, [facility] [place] [address], [place], [address] . tel:[phone] Office/outpa tient Visit, [facility], [facility] [place] [address], [place], [place], [address], [place] tel:[phone] SEC Chuy BORDEN Professional Follow up visit (chief complaint) Rosacea, unspecifiedBle pharitis of upper and lower eyelids of both eyes, unspecified typeDry eye syndrome of both eyes due to meibomian gland dysfunction 8 Yony Chanel. [address] [place], [address], [place]. tel:[phone] Referring Provider: Clifford Walton, [facility] [place] [address], [place], [address] . tel:[phone] Office/outpa tient Visit, [facility], [address], [place], [place], [address], [place] tel:[phone] SEC Chuy BORDEN Professional 2-3 wk Rosacea f/u (chief complaint) Rosacea, unspecifiedBle pharitis of both eyes with rosaceaMeibomi an gland dysfunction (MGD) of both eyes 8 Bhakta Yanique. [address] [place], [address], [place]. tel:[phone] Referring Provider: Clifford Walton, [id number], [place], [address] . tel:[phone] Office/outpa tient Visit, [facility], [address] [employer] [address], [place], [place], [address], [place] tel:[phone] SEC Chuy BORDEN Professional red eye (chief complaint) Ocular rosacea 8 Bhakta Yanique. [address] [place], [address], [place]. tel:[phone] Referring Provider: Clifford Walton, [employer] [address], [place], [address] . tel:[phone] [facility], [address], [place], [place], [address], [place] tel:[phone] SEC Makenzie Kemp Complete Exam (chief complaint) Ocular rosaceaPresenc e of intraocular lensBenign neoplasm of right choroid 7 Tolu Horton. [id number], [address], [place], [place], [address], [place]. tel:[phone] Referring Provider: Clifford Walton, [id number], [place], [address] . tel:[phone] [facility], [address], [place], [place], [address], [place] tel:[phone] SEC Makenzie N Lindbergh Complete Exam (chief complaint) No Information 8-201 6 Tolu Horton. [facility] [place] [address], [address], [place], [place], [address], . tel:[phone] Referring Provider: Clifford Walton, [facility] [place] [address], [place], [address] . tel:[phone] [employer], [facility] [place] [address], [place], [place], [address], tel:[phone] SEC [place] N [place] No Information 6 Tolu Horton. [facility] [place] [address], [address], [place], [place], [address], . tel:[phone] [employer], [facility] [place] [address], [place], [place], [address], tel:[phone] SEC [place] N [place] Blurry vision (chief complaint) No Information 0- 5 Tolu Horton. [facility] [place] [employer], [address], [place], [place], [address], . tel:[phone] Referring Provider: Clifford Walton, [id number], [place], [address] . tel:[phone] Office/outpa tient Visit, [facility] [employer], [facility] [place] [address], [place], [place], [address], tel:[phone] SEC [place] N [place] No Information 3-201 3 Tolu Horton. [id number], [address], [place], [place], [address], . tel:[phone] Referring Provider: Clifford Walton, [id number], [place], [address] . tel:[phone] [employer], [address], [place], [place], [address], [place] tel:[phone] SEC Makenzie N Lindberg[place] No Information 3 Tolu Horton. [address], [address], [place], [place], [address], [place]. tel:[phone] Referring Provider: Clifford Walton, [address], [place], [address] . tel:[phone] [facility], [address], [place], [place], [address], [place] tel:[phone] SEC [place] N [place] No Information 3 Tolu Horton. [address], [address], [place], [place], [address], [place]. tel:[phone] Referring Provider: Clifford Walton, [address], [place], [address] . tel:[phone] [facility], [address], [place], [place], [address], [place] tel:[phone] SEC Makenzie N Lindberg[place] No Information 3 Tolu Clifford. [address], [address], [place], [place], [address], [place]. tel:[phone] Referring Provider: Clifford Walton, [address], [place], [address] . tel:[phone] [facility], [address], [place], [place], [address], [place] tel:[phone] SEC [place] N [place] No Information 3 Tolu Horton. [address], [address], [place], [place], [address], [place]. tel:[phone] Referring Provider: Clifford Walton, [address], [place], [address] . tel:[phone] [facility], [address], [place], [place], [address], [place] tel:[phone] SEC [place] N [place] No Information 0 6-201 3 Steiner Ariel. [address] [facility], [address], [place], [place], [address], [place]. tel:[phone] Referring Provider: Clifford Walton, [address] [place] [address] [address], [place], [address] . tel:[phone] [facility], [address] [place] [address] [address], [place], [place], [address], [place] tel:[phone] SEC Makenzie N Lindbergh No Information 0- 3 Danielle Carrington. [address] [facility], [address], [place], [place], [address], [place]. tel:[phone] Referring Provider: Clifford Walton, [address] [place] [address], [place], [address] . tel:[phone] [facility], [address] [place] [address] [address], [place], [place], [address], [place] tel:[phone] [facility] No Information 3 Tolu Horton. [address] [place] [address], [address], [place], [place], [address], [place]. tel:[phone] Referring Provider: Clifford Walton, [address] [place] [address], [place], [address] . tel:[phone] [facility], [address], [place], [place], [address], [place] tel:[phone] SEC Makenzie N Lindberg[place] No Information 3-201 3 Steiner Ariel. [address] [facility], [address], [place], [place], [address], [place]. tel:[phone] Referring Provider: Clifford Walton, [facility] [place] [address], [place], [address] . tel:[phone] [facility], [address], [place], [place], [address], [place] tel:[phone] SEC [place] Oscar [place] No Information 3 Steinerbrooks Arriagael. [address] [facility], [address], [place], [place], [address], [place]. tel:[phone] Referring Provider: Clifford Walton, [facility] [place] [address], [place], [address] . tel:[phone] [facility], [address] [place] [address] [address], [place], [place], [address], [place] tel:[phone] SEC Makenzie N Lindbergh No Information 3 Steiner Ariel. [address] [facility], [address], [place], [place], [address], [place]. tel:[phone] Referring Provider: Clifford Walton, [facility] [place] [address], [place], [address] . tel:[phone] [facility], [address] [place] [address] [address], [place], [place], [address], [place] tel:[phone] No Information 3 Tolu Horton. [address], [address], [place], [place], [address], [place]. tel:[phone] Referring Provider: Clifford Walton, [address] [place], [place] [address], [place], [address] . tel:[phone] [facility], [address], [place], [place], [address], [place] tel:[phone] SEC [place] N [place] No Information 3 Tolu Horton. [address], [address], [place], [place], [address], [place]. tel:[phone] Referring Provider: Clifford Walton, [facility] [place] [address], [place], [address] . tel:[phone] [facility], [address], [place], [place], [address], [place] tel:[phone] SEC Makenzie N Lindberg[place] No Information 3 Jatin George. [address] [facility], [address], [place], [place], [address], [place]. tel:[phone] Office/outpa tient Visit, [facility], [address] [place] [address] [address], [place], [place], [address], [place] tel:[phone] SEC [place] N Lindberg[place] No Information 3 Tolu Horton. [facility] [place] [employer], [address], [place], [place], [address], [place]. tel:[phone] Office/outpa tient Visit, [facility], [address], [place], [place], [address], [place] tel:[phone] SEC Makenzie N Lindbergh No Information 2 Tolu Horton. [facility] [place] [employer], [address], [place], [place], [address], [place]. tel:[phone] Referring Provider: Clifford Walton, [facility] [place] [address], [place], [address] . tel:[phone] Office/outpa tient Visit, [facility], [address] [place] [address] [address], [place], [place], [address], [place] tel:[phone] SEC [place] N [place] No Information 2 Tolu Horton. [facility] [place] [employer], [address], [place], [place], [address], [place]. tel:[phone] [facility], [address], [place], [place], [address], [place] tel:[phone] SEC [place] N [place] No Information 9-201 0 Tolu Clifford. [address], [address], [place], [place], [address], [place]. tel:[phone] Referring Provider: Clifford Walton, [facility] [place] [address], [place], [address] . tel:[phone] [facility]pa [facility]ient [facility], [facility], [address] [employer] [address], [place], [place], [address], [place] tel:[phone] SEC [place] N [place] No Information 7201 0 Jatin George. [address] [facility], [address], [place], [place], [address], [place]. tel:[phone] [facility], [address], [place], [place], [address], [place] tel:[phone] SEC Makenzie N Lindbergh No Information 0-200 9 Tolu Clifford. [facility] [place] [employer], [address], [place], [place], [address], [place]. tel:[phone] Referring Provider: Clifford Walton, [facility] [place] [address], [place], [address] . tel:[phone] [facility], [facility] [place] [address], [place], [place], [address], [place] tel:[phone] SEC [place] N [place] No Information 2-200 8 Tolu Horton. [facility] [place] [employer], [address], [place], [place], [address], [place]. tel:[phone] Referring Provider: Clifford Walton, [address] [place], [place] [address], [place], [address] . tel:[phone] [facility], [address], [place], [place], [address], tel:[phone] SEC Makenzie [place] No Information 7 Tolu Horton. [address], [address], [place], [place], [address], [place]. tel:[phone] Referring Provider: Clifford Walton, [address], [place], [address] . tel:[phone] Family History Family Member Type Diagnosis Age At Onset Unknown Problem (finding) Diabetes mellitus Payers Payer name Insurance type Covered green party ID Sri sequeirarobert(s) [facility] Mdcr Adv CI [id number] Social History Type Description Quantity Date Captured Comments Alcohol Use Details Caffeine Use Details 1 cup per day Tobacco Use Status Current non-smoker Smoking Status Never smoker Non-Smoking Tobacco Use Details : No Details Available : No Details Available Sex Female Chief Complaint And Reason For Visit From encounter dated '04/10/2019 13:30'. Complete Exam (chief complaint). Description: The 73 year old female presents for a complete exam ou. Patient is pseudo ou with yag caps ou. Patient states eyes are doing good. 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 Patient denies any changes in vision ou. Reason For Referral Reason For Referral No Information Plan Of Treatment Date Type Action Status Patient Education Radha and Ashish: Car e Instructions completed Patient Education Radha and Isadoraia: Car e Instructions completed Patient Education Radha and Ashish: Car e Instructions completed Patient Education Rosacea: Care Instructi ons completed History Of Present Illness Encounter Date Complaint History Of Prese nt Illness Complete Exam The 73 year old female presents for a complete exam ou. Patient is pseudo ou with yag caps ou. Patient states eyes are doing good. 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 Patient denies any changes in vision ou. 3 wks Chalazion f/u The 73 year old female presents for evaluation of 3 wks Chalazion f/u in the right eye. Pt reports she is taking Doxycycline 50 mg QD PO, warm compresses QAM OU, Lid scrubs QAM and Maxitrol QID OD. Pt reports OD is better, the irritation is gone some and it feels better when she wakes up in the am, it is smaller than it was, but it is still there. WIE The 73 year old female presents for evaluation of WIE/bump on RLL. Hx of PCIOL OU, YAG PC OU, GORAN OU, and Rosacea. Patient states she noticed a bump on the RLL about 2 months ago she has been using warm compresses and it's not working. Her eye water excessively and are always red. Patient not using any gtts at this time. Follow up visit The 72 year old female presents for a 5 week follow up for Blepharitis ou and Rosacea ou. Patient is using Soothe XP qd-bid ou. Patient states she tried gel and it burned. Patient c/o ou is still irritated but they are better. Patient has D/C Doxy. 2-3 wk Rosacea f/u The 72 year o ld female presents for evaluation of 2-3 wk Rosacea f/u in the right eye and left eye. Hx of PCIOL OU, YAG PC OU, Nevus OD, floater OS, and ocular Rosacea OU. Pt reports she has been taking Doxy 50 mg QD PO. Pt reports OU is a lot better, but not completely, as she still wakes up with GORAN, scratchy, and tearing OU, and has to use AFT BID-TID OU. red eye The 72 year old female presents for evaluation of red eye in the left > right. It started flaring up a couple of days ago. in the am she has green discharge from eyes. pt uses artificial tears prn ou. Complete Exam The 72 year old female presents for Complete Exam in the right eye and left eye. Hx PCIOL OU, YAG PC OU, Nevus OD, Floaters OS, Rosacea. Pt states her vision is doing very good, current glasses working well. Pt using OTC eye drops 2-3x/day. Pt states her eyes are very irritated, painful and red, at times eyes are so dry she can open them. Complete Exam The 71 year old female presents for Complete Exam in the right eye and left eye. Hx of PC IOL OU, Yag PC OU, and Neoplasm OD. Pt states lenses to not sit right on eyes, feels like she is alway searching for a clear spot on the lenes. No VA complaints when correct spot is found. Blurry vision The 69 year old female presents for a complete exam. Pt denies any pain or discomfort at this time. Pt states v/a is stable, but would like a new pair of glasses. PT uses Noritate 0.75% QAM. 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 Rosacea looks well controlled with Noritate cream, rec she continue. Discussed eye irritation with pt and Yajaira Bingham Dr. use ou qday as needed. Pt instructed to contact us if this medication is too expensive and we can substitute. Return to the office in 1 yr for complete exam. Continue AT's as needed. Ocular rosacea - Med ication use discussed Related to Ocular rosacea Presence of intraocu lar lens - New glasses Rx given Related to Presence of intraocular lens Impression/Plan - Di scussed dx with pt. Rec warm compress and massage along with AT's. Sample given to pt. Continue Noritate as needed for Rosacea. Copy of Rx printed for pt to have this filled. New spec Rx given at pt's request. Return to the office in 1 yr or sooner if vision worsens. Follow up - 1 yr complete exam - Discussed dx with pt. Ok to continue generic Noritate 0.75% qday. ERX to [facility] with 12 refills. Rec spec adjustment. Printed out old Rx for pt if unable to have these adjusted. Related to See list of assessments above - 1 yr complete Related to See l ist of assessments above - 1 yr complete Related to TERESA N NEOPLASM CHOROID LENS REPLACEMENT NEC OU BENIGN NEOPLASM CHOROID OD - OU: Discussed diagnosis in detail with patient. No treatment is required at this time. Will continue to observe condition and or symptoms. Call if VA worsens. Patient instructed to use artificial tears as neededprior to going to sleep. Educational materials provided:about today's exam.Erx Noritate cream to [facility]. 12 refills. 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 discussed gtt use with pt to minimize pupil size and decrease her visual complaints. Side affects discussed with pt. Rx given for Feliberto 1% OD qday if pt feels she needs a stronger concentration ok to call in 2% with the same instructions. Related to FOLLOW-UP SURGERY NOS Opacified Capsule, O S - established, worsening - vision affected - may improve with surgery - Good post op course OD, Proceed with YAG PC OS38@5.5Dilate OU on return and refract OU Related to Opacified Capsule - 3-4 weeks with DPW po Related to Opacified Capsule Opacified Capsule, O D - established, worsening - vision affected - may improve with surgery - 32@5.2 Related to Opacified Capsule - sched YAG PC OD Related to FOL LOW-UP SURGERY NOS FOLLOW-UP SURGERY NO S, OD, - Discussed dx with pt. Pt understands YAG PC for treatment of PCF. Pt understands r-a-b and will schedule Related to FOLLOW-UP SURGERY NOS FOLLOW-UP SURGERY NO S, 2 week PCL OD (Second eye) - Continue using current medications, tapering as instructed. Discussed possibility of PCF. RTC 6 months. Related to FOLLOW-UP SURGERY NOS - 2weeks 1day postop cat with pciol od-od for near - start drops FOLLOW-UP SURGERY NO S, 2week Pcl OS - Continue using current medications, taper as instructed. Patient requests cataract surgery for the right eye. Sched cataract surgery for the Right Eye.Wants monovision OD for near Related to FOLLOW-UP SURGERY NOS FOLLOW-UP SURGERY NO S, 1 week PCL OS OS, doing well discussed photopsia - Continue drops, Keep appointment for 2 week post-op Related to FOLLOW-UP SURGERY NOS - 1 Week Related to FOLLO W-UP SURGERY NOS FOLLOW-UP SURGERY NO S, 1 day PCL OS - Post-op instructions givenTold to begin T-dex today Related to FOLLOW-UP SURGERY NOS - 2 Weeks Related to FOLLO W-UP SURGERY NOS Cataract, Nuclear Sc lerosis, OU Used to wear monovision CL OD near - Given +1.50 for reading OD Likes this can see computer well Related to Cataract, Nuclear Sclerosis Cataract, PSC, OU - established, worsening - vision affected, h/o MV CTL wear - Cataract(s) accounts for patient's complaints. Discussed all risks, benefits, procedures and recovery. Patient understands changing glasses will not improve vision. Patient desires to have surgery, recommend PE w/IOL. Discussed IOL focus with pt. She is aware if standard only desired she will need specs for reading and likely intermedicate. Discussed LRI if indicated. Pt elects MV and will get old chart, and contact Dr. Boyce for CTL measurements Related to Cataract, PSC - sched CE OD 1st Related to Cat aract, PSC Choroidal Nevus, OD - established, stable - vision not affected - will continue to monitor - Discussed dx no treatmentIf Lifestyle IOL desired, OCT of Mac and orbscan needed. Related to Choroidal Nevus - sched CE OD 1 st Related to Ca taract, PSC Cataract, PSC, OU - established, worsening - vision affected, may improve with surgery, - Cataract(s) accounts for patient's complaints. Discussed all risks, benefits, procedures and recovery. Patient understands changing glasses will not improve vision. Pt understandsthis is an elective procedure. Lifestyle IOLs discussed with pt, info given. Discussed LRI with pt, pt will need orbscan, Pt understandsreading RX with standard IOL and if LRI declined will also need astigmatism correction. Pt understands possible glare and halos with Tecnis MF. Related to Cataract, PSC Choroidal Nevus, OD - established, stable - vision not affected - will continue to monitor - Discussed diagnosis with patient. Condition is stable, no change in treatment regimen. Will continue to monitor condition. Related to Choroidal Nevus - 6 month cat eval Related to Ca taract, Nuclear Sclerosis Glaucoma Suspect, OU -Large CDR - vision not affected - will continue to monitor - no treatment required, will monitor Related to Glaucoma Suspect Cataract, Nuclear Sc lerosis, OU - causing more glare- established, worsening - will continue to monitor - Early cataract(s) accounts for patient's complaints. No treatment currently recommended due to VA level, Patient will monitor vision changes and contact us with any decrease in vision, will re-evaluate cataract on return visit. Pt understands she doesn't qualify for CE at this time. Gave refill Rx for Noritate Cream 1 % for rosacea OU. Related to Cataract, Nuclear Sclerosis Assessments Type Assessment Date assessment Presence of intraocular lens Apr assessment Chalazion of right lower eyelid assessment Meibomian gland dysfunction (MGD ) of both eyes assessment Punctate keratitis, bilateral Ju Patient Care Teams Name Effective Dates (start - stop) Status Members No Information
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
--- OUTSIDE RECORDS SUMMARY | 2025-04-18 17:42 | XMS_ITS ---
Author Name Auto Generated, Auto Generated Organization [facility] Address [address] [place] [address] Phone [phone] Care Team Providers Care Gauntlet Pairer Name Role Phone Lauren, Kelli Macias Unavailable [phone] Brynn Lagunas Unavailable [phone] Dona Rayo Unavailable Shadi Cui Unavailable [phone] Functional Status No Results Mental Status No Results Allergies and Intolerances Name Onset Date Reaction Severity Sulfa (Sulfonamide Antibiotics) (Allergy) Wed 15:37:00 EDT 2024 Encounters Program Name Primary Diagnosis Admission Date/Time Dis charge Date/Time Home Care Parkinson's disease with dyskinesia, with fluctuations WedMar 27 20:00:00 EDT 2024 null WedJun 02 19:59 :00 EDT 2015 Medications Medication Directions Start Date End Date TylenoL 325 mg tablet 1 tablet TABLET Or al PRN (Max 1 Doses) for 1 Day 1 TABLET EVERY 8 HOURS WedMar 28 01:00:00 EDT 2024Mar 29 00:59:00 EDT 2024 calcium carb 600 mg(1,500 mg)-vit D3 400 unit-minerals chewable tablet 1 TABLET,CHEWABLE Oral Every 1 Day WedMar 28 01:00:00 EDT 2024 mecobalamin (vitamin B12) 2,500 mcg chewable tablet 1 TABLET,CHEWABLE Oral Every 1 Day WedMar 28:00:00 ED2024 multivitamin tablet 1 TABLET Oral Every 1 Day WedMar 28:00:00 EDT 2024 magnesium 250 mg tablet 1 TABLET Oral Ev niko 1 Day WedMar 28:00:00 EDT 2024 melatonin 10 mg tablet 1 TABLET Oral Leonora ry 1 Day WedMar 28:00:00 EDT 2024 amantadine HCL 100 mg tablet 1 TABLET Oral 2 Times Daily WedMar 28:00:00 EDT 2024 clobetasoL 0.05 % topical cream 1 CREAM (GRAM) Topical 2 Times Daily WedMar 28:00:00 ED2024 midodrine 10 mg tablet 1 TABLET Oral 3 T imes Daily WedMar 28:00:00 EDT 2024 Rytary 48.75 mg-195 mg capsule,extended release 1 CAPSULE, EXTENDED RELEASE Oral Before Meals TAKE TWO AT 6 AMTAKE ONE AT 9 AMTWO AT 2 PMONE AT 6 PMTHREE AT 10 PM WedMar 28:00:00 EDT 2024 carbidopa 25 mg tablet 1 TABLET Oral Leonora ry 1 Day WedMar 28:00:00 ED2024 Myrbetriq 50 mg tablet,extended release 1 TABLET, EXTENDED RELEASE 24 HR Oral Every 1 Day WedMar 28:00:00 ED2024 baclofen 5 mg tablet 1 TABLET Oral Every 1 Day WedMar 28 01:00:00 EDT 2024 Reclast 5 mg/100 mL intravenous piggyback 1 IV SOLUTION, PIGGYBACK, BOTTLE (ML) Intravenous PRN (Max 1 Doses) ONCE PER YEAR WedMar 28 01:00:00 EDT 2024 Problems Active Concerns * Parkinson's disease* Code: * Start Date: WedNov 13 00:00:00 EST 2021 * End Date: * Text: * Muscle weakness (generalized)* Code: * Start Date: WedNov 13 00:00:00 2021 * End Date: * Text: * Personal history of COVID-19* Code: * Start Date: WedMar 28 00:00:00 EDT 2024 * End Date: * Text: * Other predatory animal exterminator (current) drug therapy* Code: * Start Date: WedMar 28 00:00:00 EDT 2024 * End Date: * Text: * Patient's noncompliance with other medical treatment and regimen due to unspecified reason* Code: * Start Date: WedMar 28 00:00:00 EDT 2024 * End Date: * Text: * History of falling* Code: * Start Date: WedMar 28 00:00:00 EDT 2024 * End Date: * Text: * Personal history of other venous thrombosis and embolism* Code: * Start Date: WedMar 28 00:00:00 EDT 2024 * End Date: * Text: * Need for assistance with personal care* Code: * Start Date: WedMar 28 00:00:00 EDT 2024 * End Date: * Text: * Other reduced mobility* Code: * Start Date: WedMar 28 00:00:00 EDT 2024 * End Date: * Text: * Other insomnia* Code: * Start Date: WedMar 28 00:00:00 EDT 2024 * End Date: * Text: * REM sleep behavior disorder* Code: * Start Date: WedMar 28 00:00:00 EDT 2024 * End Date: * Text: * Anxiety disorder, unspecified* Code: * Start Date: WedMar 28 00:00:00 EDT 2024 * End Date: * Text: * Orthostatic hypotension* Code: * Start Date: WedMar 28 00:00:00 EDT 2024 * End Date: * Text: * Overactive bladder* Code: * Start Date: WedMar 28 00:00:00 EDT 2024 * End Date: * Text: * Adverse effect of antiparkinsonism drugs and other central muscle-tone depressants, subsequent encounter* Code: * Start Date: WedMar 28 00:00:00 EDT 2024 * End Date: * Text: * Drug induced subacute dyskinesia* Code: * Start Date: WedMar 28 00:00:00 EDT 2024 * End Date: * Text: * Parkinson's disease with dyskinesia, with fluctuations* Code: * Start Date: WedMar 28 00:00:00 EDT 2024 * End Date: * Text: Reason for Referral Past Medical History
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
--- OUTSIDE RECORDS SUMMARY | 2025-04-18 17:43 | XMS_ITS | Encounter Summary ---
Author Organization [facility] Address [address] [place] [address] Care Team Providers Care Railway Track Worker Name Role Phone Dona Rayo MD Primary Care Provider [phone] Encounter Details Date Type Department Care Team (Late st Contact Info) Description 04/18/2025 External Device Data [facility] ABSTRACTION Provider, Abstract NO ADDRESS ON FILE Social History Tobacco [...] AM CDT Legal Sex Female 3:37 AM RESIDENT HALL DIRECTOR Gender Identity Not on file Sexual Orientation Straight 07/17/2024 8: 55 AM CDT documented as of this encounter Plan of Treatment Upcoming Encounters Date Type Department Care Team (Late st Contact Info) Description 07/10/2025 1:45 PM CDT Office Visit [facility] Endocrinology [address] [place] [address] Sky Reid MD [address] [place] [address] documented as of this encounter Visit Diagnoses Not on filedocumented in this encounter Additional Health Concerns Assessment Noted Time PHQ-9 Depression Total Score: 2 12/14/19 25 2:07 PM CDT documented as of this encounter Care Teams Railway Track Worker Relationship Specialty [place] [id number] [place] [address] PCP - General Family Practice 12/13/24 documented as of this encounter
--- OUTSIDE RECORDS SUMMARY | 2025-04-18 17:43 | XMS_ITS | Encounter Summary ---
Author Organization [facility] Address [address] [place] [address] Care Team Providers Care Ui Engineer Name Role Phone Dona Rayo MD Primary Care Provider Encounter Details Date Type Department Care Team (Late st Contact Info) Description 04/17/2025 External Device Data STL ABSTRACTION Provider, [...] AM CDT Legal Sex Female 3:37 AM [employer]GG[employer]IVIT[employer] DIRECTOR Gender Identity Not on file Sexual Orientation Straight 07/17/2024 8: 55 AM CDT documented as of this encounter Plan of Treatment Upcoming Encounters Date Type Department Care Team (Late st Contact Info) Description 07/10/2025 1:45 PM CDT Office Visit [facility] Endocrinology [address] [place] [address] Sky Reid MD [address] [place] [address] documented as of this encounter Visit Diagnoses Not on filedocumented in this encounter Additional Health Concerns Assessment Noted Time PHQ-9 Depression Total Score: 2 12/14/19 25 2:07 PM CDT documented as of this encounter Care Teams Ui Engineer Relationship Specialty [place] [id number] [place] [address] PCP - General Family Practice 12/13/24 documented as of this encounter
[2025-04-18 17:58] VITALS: BP 182/102; PULSE 84; RESP 40; TEMP 36.4; O2SAT 98
--- NOTE | 2025-04-18 20:30 | ECG_ITS ---
Test Date: 2025-04-18 20:54:18 Measurements Intervals [place] Rate: 85 P: 26 ID: [id number] QRS: -22 QRSD: 93 T: 111 QT: 359 QTc: 428 Interpretive Statements SINUS RHYTHM LEFT ATRIAL ENLARGEMENT LEFT VENTRICULAR HYPERTROPHY AND ST-T CHANGE Electronically Signed On 04-18-2025 23:34:27 CDT by Osman Garibay D.O
--- NOTE | 2025-04-18 20:32 | ED.WEAKNESS ---
HPI - Weakness General Chief complaint: Weakness Stated complaint: WEAKNESS Time Seen by Provider: 04/18/25 19:50 History of Present Illness HPI Narrative: 79-year-old female with a past medical history including Parkinson's dementia, dyskinesia, hypotension on midodrine. Patient presents to the emergency department with generalized weakness and difficulty ambulating. She states that she checked in because her sister is here in the emergency department and is her bender helper and she lives with her. Patient's sister is ill and in room 8. Patient states that she has had progressive weakness worsening over last few weeks and now difficulty walking where she has to use her cane and walker more often but does not endorse any falls. She states her Parkinson's is severe and causes her to have severe pain and cramping in all her muscles and difficulty sleeping where she only sleeps approximately 3 hours a night. She states she has no help at home and requesting placement. Patient herself endorses pain all over without any lateralization or localization to the head chest abdomen or pelvis. She states mostly in her legs bilaterally and her arms. Denies any falls, head trauma. Did take her blood pressure medications including midodrine at home prior to arrival as well as her 6:00 p.m. Parkinson's med. Related Data Home Medications ?Medication ?Instructions ?Recorded ?Confirmed ?Last Taken ?Type carbidopa 25 mg-levodopa 100 mg 1 tablet PO QHS PRN tremors 11/17/23 04/19/25 04/18/25 History tablet carbidopa ER 48.75 mg-levodopa 195 1 cap PO TID 11/17/23 04/19/25 04/18/25 History mg capsule,extended release (Rytary) hydrocodone 2.5 mg-acetaminophen 1 tablet PO QHS PRN pain 11/17/23 04/19/25 04/10/25 History 325 mg tablet midodrine 5 mg tablet 12.5 mg PO TID 11/17/23 04/19/25 04/18/25 History mirabegron 25 mg tablet,extended 25 mg PO DAILY 11/17/23 04/19/25 04/18/25 History release 24 hr (Myrbetriq) amantadine HCl 100 mg capsule 100 mg PO BID 04/19/25 04/19/25 04/18/25 History calcium 500 mg tablet 500 mg PO DAILY 04/19/25 04/19/25 04/18/25 History clobetasol 0.05 % topical ointment 1 applic topical PRN 04/19/25 04/19/25 04/10/25 History magnesium 200 mg PO DAILY 04/19/25 04/19/25 04/18/25 History mecobalamin (vitamin B12) 1,000 mcg PO DAILY 04/19/25 04/19/25 04/18/25 History multivit with min-folic acid 1 tablet PO DAILY 04/19/25 04/19/25 04/18/25 History Allergies Allergy/AdvReac Type Severity Reaction Status Date / Time Sulfa (Sulfonamide AdvReac Dry Eye Verified 11/17/23 14:52 Antibiotics) Review of Systems Review of Systems: As reviewed above in [facility] Past Medical History Medical History Acute arthritis Dystonia Parkinson disease Surgical History Surgical History H/O knee surgery History of cholecystectomy Social History Social History Smoking status: Never smoker Second hand tobacco smoke exposure: No Alcohol intake: current Drinks per week: 1 Substance use: never Substance use type: does not use Do You Feel Safe in your Home?: Yes Lack of Transportation: No Lack of Food: Never True Current Housing: I Have Housing Concerned About Future Housing: No Difficulty Paying Gas/Electric Bills: No Difficulty Paying for Meds: No Currently Unemployed: No Education: High School Diploma/GED Difficulty w/ Childcare or Family Care: No [place] Occupation/Education: retired Gender identity (if verbalized by the patient): Female Sexual Orientation (if Verbalized by the Patient): Straight or Heterosexual Spiritual care concerns: No Exam Narrative: GENERAL: Elderly and frail, mildly tachypneic, not any acute distress and very tearful in affect. HEAD: [Normocephalic, atraumatic.] EYES: [PERRLA and EOMI.] ENT: Nares clear, no rhinorrhea or epistaxis. Mucous membranes moist. NECK: Supple. CHEST: [Clear to auscultation. No respiratory distress.] Speaks in clear sentences, painting occasionally and feeling anxious HEART: [Regular rate and rhythm]. No murmur heard. [Normal peripheral pulses.] ABDOMEN: [Soft, nondistended], [nontender], [No rigidity or guarding] EXTREMITIES: Normal range of motion. [No edema.] SKIN: Warm, dry, no rash. NEURO: Diffuse cogwheel rigidity with contractions of the lower extremities. No obvious focal deficits and able to move both arms and legs, no facial asymmetry or dysarthria, no facial droop. Alert and oriented [x3.] PSYCH: Anxious and tearful Course Vital Signs Vital signs: Vital Signs Temperature 36.4 C 04/18/25 17:58 Pulse Rate 84 04/18/25 17:58 Respiratory Rate 40 H 04/18/25 17:58 Blood Pressure 182/102 H 04/18/25 17:58 Pulse Oximetry 98 04/18/25 17:58 Oxygen Delivery Room Air 04/18/25 17:58 Temperature 36.5 C 04/19/25 04:00 Pulse Rate 90 04/19/25 06:00 Respiratory Rate 16 04/19/25 04:00 Blood Pressure 160/79 H 04/19/25 04:00 Pulse Oximetry 95 04/19/25 04:00 Oxygen Delivery Room Air 04/18/25 17:58 MDM - Weakness MDM Narrative Medical decision making narrative: 79-year-old female with a past medical history including Parkinson's dementia, dyskinesia, hypotension on midodrine. Patient presents to the emergency department with generalized weakness and difficulty ambulating. She states that she checked in because her sister is here in the emergency department and is her bender helper and she lives with her. Patient's sister is ill and in room 8. Patient states that she has had progressive weakness worsening over last few weeks and now difficulty walking where she has to use her cane and walker more often but does not endorse any falls. She states her Parkinson's is severe and causes her to have severe pain and cramping in all her muscles and difficulty sleeping where she only sleeps approximately 3 hours a night. She states she has no help at home and requesting placement. Patient herself endorses pain all over without any lateralization or localization to the head chest abdomen or pelvis. She states mostly in her legs bilaterally and her arms. Denies any falls, head trauma. Did take her blood pressure medications including midodrine at home prior to arrival as well as her 6:00 p.m. Parkinson's med. Patient is very tearful in her affect and anxious appearing. She has an unremarkable neurological assessment with no lateralization or focal findings. She does have global weakness consistent with her chief complaint. She is panting frequently throughout the examination and states she is feeling anxious and pants when this happens, but she has no decreased breath sounds or decreased air entry, no retractions or respiratory distress. She is not hypoxic but is mildly hypertensive but also did take her 12.5 mg midodrine prior to arrival. No signs of trauma examination. Broad workup was ordered this time including a CT of the head, chest x-ray, EKG, electrolyte panel, CBC, urinalysis. She was given Valium and low-dose morphine for diffuse pain and muscle spasms. Laboratory studies showed no leukocytosis or anemia. Normal electrolytes, mildly elevated BUN with possibility of dehydration so she was provided fluids. Chest x-ray unremarkable. CT of the head unremarkable. Patient re-evaluated after treatments and had symptomatic improvement. Her initial troponin was detectable and her delta troponin was elevated concerning for acute myocardial injury and given the setting of severe hypertension with fluctuations on midodrine this could be a sign of cardiac damage from the blood pressure modulation. She is given a dose of IV hydralazine here with good effect. She remains without any chest pain on re-examination her EKG does not appear ischemic in nature. Discussed the case with the hospitalist who accepted the patient to the IMU at this time. Patient safely admitted. Medical Records Attestation: I reviewed the patient's medical records. Lab Data Attestation: I reviewed the patient's lab results. 04/18/25 20:56 04/18/25 20:56 Labs: Lab Results 04/18/25 04/18/25 04/18/25 Range/Units 20:56 21:16 23:36 WBC 6.5 (4.5-10.0) K/mm3 RBC 3.85 L (4.2-5.4) M/mm3 Hgb 12.2 (12.0-15.0) g/dL Hct 37.9 (37.0-47.0) % MCV 98.4 (80-100) fl MCH 31.7 (26-34) pg MCHC 32.2 (32-36) g/dl RDW 13.5 (11.5-14.5) % Plt Count 287 (150-375) k/mm3 MPV 9.9 (7.4-10.4) fl Immature Gran % (Auto) 0.2 (0-0.5) % Neut % (Auto) 75.7 H (45.5-73.1) % Lymph % (Auto) 15.3 L (18.3-44.2) % [place] % (Auto) 7.0 (2.6-8.5) % Eos % (Auto) 1.2 (0-4.4) % Baso % (Auto) 0.6 (0.2-1.2) % Lymph # (Auto) 1.00 (0.9-3.2) K/mm3 [place] # (Auto) 0.5 (0.1-0.6) K/mm3 Eos # (Auto) 0.1 (0-0.3) K/mm3 Baso # (Auto) 0.0 (0.0-0.1) K/mm3 Abs Immat Gran (auto) 0.01 (0.00-0.031) K/mm3 Absolute Neuts (auto) 5.0 (1.3-6.7) K/mm3 Absolute Nucleated RBC 0.000 (0.0-0.012) K/mm3 Nucleated RBC % 0.0 (0.0-0.2) % Sodium 138 (137-145) mmol/L Potassium 3.6 (3.4-5.0) mmol/L Chloride 103 (98-107) mmol/L Carbon Dioxide 27 (22-30) mmol/L Anion Gap 8 (4-12) mmol/L BUN 39 H D (7-17) mg/dL Creatinine 0.89 (0.7-1.0) mg/dL Estim Creat Clear Calc 32 ml/min Estimated GFR > 60 (59 - ) Glucose 96 (65-110) mg/dL Calcium 9.1 (8.4-10.2) mg/dL Magnesium 2.2 (1.6-2.3) mg/dL Total Bilirubin 1.1 (0.2-1.3) mg/dL AST 24 (14-36) U/L ALT < 6 L (6-35) U/L Alkaline Phosphatase 64 (38-126) U/L Troponin I 0.022 0.042 H* D (0.000-0.034) ng/mL Total Protein 8.3 H (6.3-8.2) g/dL Albumin 4.6 (3.5-5.1) g/dL Urine Color Yellow (Yellow) Urine Appearance Clear (Clear) Urine pH 5.5 (5.0-9.0) Ur Specific [place] 1.020 (1.001-1.035) Urine Protein 1+ H (Negative) mg/dL Urine Glucose (UA) Negative (Negative) mg/dL Urine Ketones Trace H (Negative) mg/dL Ur Blood (Man) Negative (Negative) Urine Nitrate Negative (Negative) Urine Bilirubin Negative (Negative) Urine Urobilinogen 1.0 (<2.0) mg/dL Leukocyte Esterase Rfl Negative (Negative) DAVE/UL Urine RBC 0-2 (0-2) /hpf Urine WBC 0-5 (0-3) /hpf Ur Squamous Epith Cells None seen (Few) /hpf Urine Bacteria None seen /hpf Urine Casts 0-2 Imaging Data Attestation: I personally reviewed and interpreted this imaging study as follows: My impression: Impressions Head CT 04/18/25 20:48 IMPRESSION: No acute intracranial process. Chest X-Ray 04/18/25 21:12 IMPRESSION: No acute cardiopulmonary process. Critical Care Time Critical Care Time Critical Care Time: Yes Total Critical Care Time: 35 Discharge Plan Discharge Clinical Impression: Hypertensive emergency without congestive heart failure, Elevated troponin, Generalized weakness, Parkinson's disease Patient Disposition: Still a Patient Condition: Stable
--- OUTSIDE RECORDS SUMMARY | 2025-04-18 20:34 | XMS_ITS | Clinical Summary ---
Author Organization [facility] Address [address] [place] [address] Phone Care Team Providers Care Custody Assistant Name Role Phone Dona Rayo MD [...] COVID-19 VACCINE - EMERGENCY USE AUTHORIZATION, MRNA, [id number](PF) 30 MCG/0.3 ML IM SUSP 02/15/2022,07/16/2021,11/21/2020,2020 (Pfizer [...] AM CDT Legal Sex Female 3:37 AM FILLING OPERATOR Gender Identity Not on file Sexual Orientation Straight 07/17/2024 8: 55 AM CDT Last Filed Vital Signs Vital Sign Reading Time Taken Comments Blood Pressure 146/100 12/13/2024 1:53 PM CDT Pulse 91 12/13/2024 1:53 PM CDT Temperature 36.6 C (97.9 F) 12/13/2024 1:53 PM CDT Respiratory Rate 16 10/26/2023 1:12 PM FILLING OPERATOR Oxygen Saturation 98% 12/13/2024 1:53 PM CDT Inhaled Oxygen Concentration - - Weight 48.5 kg (107 lb) 12/13/2024 1:53 PM CDT Height 167.6 cm (5' 6) 12/13/2024 1:53 PM CDT Body Mass Index 17.27 12/13/2024 1:53 PM CDT Plan of Treatment Upcoming Encounters Date Type Department Care Team (Late st Contact Info) Description 07/10/2025 1:45 PM CDT Office Visit [facility] Endocrinology [address] [place] [address] Sky Reid MD [address] [place] [address] Health Maintenance Due Date Last [...] 1 year Discontinued 11/01/2020, 09/17/2017 Medicare [place] ([place] Preventative Visit/Annual Wellness Visit Completed 12/13/2024, 12/20/2023, 02/17/2023, Additional history exists FIT-DNA Q 3 years Discontinued Flex Sig/CT Colonography Q 5 years Discontinued Procedures Procedure Name Priority Date/Time Associated Diagnosis Comments XR DEXA BONE DENSITY AXIAL 1 OR MORE SITES Routine 09/08/2024 1:40 PM FILLING OPERATOR Age-related osteoporosis without current pathological fracture OCCULT BLOOD IMMUNOASSAY, COLORECTAL SCREEN Routine 11/01/2020 3:27 PM FILLING OPERATOR Screening for colon cancer ENDOSCOPY, COLON, SCREENING Routine 01/18/2018 from Last 3 Months or Most Recently Relevant to Health Maintenance Results * XR DEXA BONE DENSITY AXIAL 1 OR MORE SITES (09/08/2024 1:40 PM FILLING OPERATOR) Anatomical Region Laterality Modality Digital Radiogra phy 09/08/2024 1:41 PM FILLING OPERATOR Impressions 09/08/2024 1:50 PM FILLING OPERATOR IMPRESSION: Osteoporosis. Lumbar Spine: T-score: -2.5 Left [...] report found in: Imaging Section of the [facility] EMR. Definitions: Normal: T-score above -1.0 Osteopenia [...] Jackson MD DICTATION LOCATION: 09/08/2024 1:50 PM FILLING OPERATOR EXAMINATION: BONE DENSITY STUDY (DXA) DATE: 09/08/2024 1:40 PM HISTORY: 79 years Female. Postmenopausal. Osteopenia. PROCEDURE: Planar images of the lumbar spine, hip(s) and forearm(s). [employer] DEXA scanner for bone mineral density determination [...] because of degenerative changes. Procedure Note Jeffery aJckson MD - 09/08/2024 EXAMINATION: BONE DENSITY STUDY (DXA) DATE: 09/08/2024 1:40 PM HISTORY: 79 years Female. Postmenopausal. Osteopenia. PROCEDURE: Planar images of the lumbar spine, hip(s) and forearm(s). [employer] DEXA scanner for bone mineral density determination [...] report found in: Imaging Section of the [facility] EMR. Definitions: Normal: T-score above -1.0 Osteopenia [...] BLOOD IMMUNOASSAY, COLORECTAL SCREEN (11/01/2020 3:27 PM FILLING OPERATOR) OCCULT BLOOD, STOOL Negative Negative 11/20/2020 5:26 PM FILLING OPERATOR [facility] Stool STOOL SPECIMEN / Unknown Collection / Unknown 11/01/2020 3:27 PM FILLING OPERATOR 11/20/2020 3:28 PM FILLING OPERATOR Cherri Berumen MD BODY FLUIDS AND STOOLS Fi nal Result [facility] CLIA# [id number] [address] [place] [address] * ENDOSCOPY, COLON, SCREENING (01/18/2018) Shadi Cui MD GI PROCEDURE ORDERABLES Edit ed Result - Final Performing Organization Address City/[facility]/ZIP Co de Phone Number [facility] [place] CLIA# [id number] [address] [address] from Last 3 Months or Most Recently Relevant to Health Maintenance Insurance [facility] [id number] Advance Directives For more information, please contact: [phone] Documents on File Type Date Recorded Patient Director Of Sales Expl anation Advance Directive POA 07/12/2023 12:32 PM Advance Directive POA Advance Directive POA 07/09/2023 2:12 PM A dvance Directive POA Care Teams Custody Assistant Relationship Specialty [place] [address] [place] [address] PCP - General Family Practice 12/13/24
--- OUTSIDE RECORDS SUMMARY | 2025-04-18 20:34 | XMS_ITS | Encounter Summary ---
Author Organization [facility] Address [address] [place] [address] Care Team Providers Care Special Forces Specialist Name Role Phone Dona Rayo MD Primary Care Provider Encounter Details Date Type Department Care Team (Latest Contact Info) Description 10/21/2024 Results Follow-Up [facility] Endocrinology [address] [place] [address] Sky Reid MD [address] [place] [address] CBC WITH DIFFERENTIAL, COMPREHENSIVE METABOLIC [...] AM CDT Legal Sex Female 3:37 AM CHUCKING LATHE OPERATOR Gender Identity Not on file Sexual Orientation Straight 07/17/2024 8: 55 AM CDT documented as of this encounter Plan of Treatment Upcoming Encounters Date Type Department Care Team (Late st Contact Info) Description 07/10/2025 1:45 PM CDT Office Visit [facility] Endocrinology [address] [place] [address] Sky Reid MD [address] [place] [address] documented as of this encounter Visit Diagnoses Not on filedocumented in this encounter Care Teams Special Forces Specialist Relationship Specialty [place] [address] [place] [address] PCP - General Family Practice 12/13/24 documented as of this encounter
--- OUTSIDE RECORDS SUMMARY | 2025-04-18 20:34 | XMS_ITS | Encounter Summary ---
Author Organization [facility] Address [address] [place] [address] Care Team Providers Care Filtration Plant Mechanic Name Role Phone Dona Rayo MD Primary Care Provider [phone] Encounter Details Date Type Department Care Team (Late st Contact Info) Description 01/25/2007 Outpatient Historical [facility] Neurology [place] [address] [place] [address] Musa Tinajero MD NO ADDRESS ON FILE Social History Tobacco Use Types Packs/Day Years Used Date Smoking Tobacco: Never Assessed Comments Unknown Sex and Gender Information Value Date Recorded Sex Assigned at Female 07/17/2024 8:55 AM CDT Legal Sex Female 3:37 AM HYDROELECTRIC STATION CHIEF Gender Identity Not on file Sexual Orientation Straight 07/17/2024 8: 55 AM CDT documented as of this encounter Plan of Treatment Upcoming Encounters Date Type Department Care Team (Late st Contact Info) Description 07/10/2025 1:45 PM CDT Office Visit [facility] Endocrinology [address] [place] [address] Sky Reid MD [address] [place] [address] documented as of this encounter Visit Diagnoses Not on filedocumented in this encounter Care Teams Filtration Plant Mechanic Relationship Specialty [place] [address] [place] [address] PCP - General Family Practice 12/13/24 documented as of this encounter
--- OUTSIDE RECORDS SUMMARY | 2025-04-18 20:34 | XMS_ITS ---
Author Name Auto Generated, Auto Generated Organization [facility] Address [address] [place] [address] Phone [phone] Care Team Providers Care Heel Gummer Name Role Phone Lauren Kelli Macias Unavailable [phone] Brynn Lagunas Unavailable Dona Rayo Unavailable Shadi Cui Unavailable [phone] Functional Status No Results Mental Status No Results Allergies and Intolerances Name Onset Date Reaction Severity Sulfa (Sulfonamide Antibiotics) (Allergy) Wed 15:37:00 EDT 2024 Encounters Program Name Primary Diagnosis Admission Date/Time Dis charge Date/Time null WedJun 02 19:59 :00 EDT 2015 Home Care Parkinson's disease with dyskinesia, with fluctuations WedMar 27 20:00:00 EDT 2024 Medications Medication Directions Start Date End Date [...] * End Date: * Text: * Other termite inspector (current) drug therapy* Code: * Start Date: [...]
--- OUTSIDE RECORDS SUMMARY | 2025-04-18 20:34 | XMS_ITS | Encounter Summary ---
Author Organization [facility] Address [address] [place] [address] Care Team Providers Care Dynamotor Repairer Name Role Phone Dona Rayo MD Primary Care Provider [phone] Reason for Visit * Reason Onset Date Comments Updated POA 07/02/2023 Encounter Details Date Type Department Care Team (Late st Contact Info) Description 07/02/2023 Telephone [facility] Primary Care [address] [place] [address] Cherri Berumen MD NO ADDRESS [...] AM CDT Legal Sex Female 3:37 AM BEAUTY OPERATOR APPRENTICE Gender Identity Not on file Sexual Orientation [...] her sister in the envelope. Call-back Number: [phone] (home) documented in this encounter Plan of Treatment Upcoming Encounters Date Type Department Care Team (Late st Contact Info) Description 07/10/2025 1:45 PM CDT Office Visit [facility] Endocrinology [address] [place] [address] Sky Reid MD [address] [place] [address] documented as of this encounter Visit Diagnoses Not on filedocumented in this encounter Care Teams Dynamotor Repairer Relationship Specialty [place] [address] [place] [address] PCP - General Family Practice 12/13/24 documented as of this encounter
--- OUTSIDE RECORDS SUMMARY | 2025-04-18 20:34 | XMS_ITS | Clinical Summary ---
Author Organization [facility] Address [address] [place] [address] Care Team Providers Care Tool Crib Lead Name Role Phone Smith Howard MD Unavailable [phone] Shadi Cui MD Primary Care Provider [phone] Source Comments [facility],non-owned Affiliates and Associated Physician Practices is amultiple site organization consisting of ambulatory clinics and hospital sitesin [place], [place], [place] and [place]. This disclosure is being madepursuant to the Care Everywhere program and may not contain all information available regarding this patient. Last updated 18.[facility] Allergies Active Allergy Reactions Criticality Noted Date [...] on file Legal Sex Female 4:25 AM STONE FINISHER Gender Identity Not on file Sexual Orientation [...] Most Recently Relevant to Health Maintenance Insurance [facility] MANAGED MEDICARE ADV Care Teams Tool Crib Lead Relationship Specialty [place] [address] [address] [address] [address] [place] [address] PCP - OBGYN 03/11/09 [place] [address] [address] [address] [place] [address] PCP - General Internal Medicine 01/02/13
--- OUTSIDE RECORDS SUMMARY | 2025-04-18 20:34 | XMS_ITS | Encounter Summary ---
Author Organization [facility] Address [address] [place] [address] Phone Care Team Providers Care Cardiac Cath Lab Manager Name Role Phone Marci Rodriguez OVERLOCK ELASTIC ATTACHER Unavailable [phone] Dona Rayo MD Primary Care Provider Encounter Details Date Type Department Care Team (Late st Contact Info) Description 04/18/2025 Telephone [facility] Movement Disorders [address] Medicine [address] [place] [address] Brynn Lagunas MD PhD [address] [place] [address] Social History Tobacco Use Types [...] on file Legal Sex Female 4:53 AM AVIATION ELECTRICAL TECHNICIAN Gender Identity Female 10/29/2021 11:06 AM AVIATION ELECTRICAL TECHNICIAN Sexual Orientation Not on file documented as [...] her sister was also advised to go [facility] ED for her declining health. She is having dyskinesia, rapid breathing, weakness in legs, and overall declining. She was unable to go picking machine operator the extra midodrine, so she did not take her amantadine today. BP was 118/60 seated, unable to get standing. Krysten and Bruno as well as Fabiola agreed to go to the hospital for fluids, assessment, and placement options. We discussed going to [facility] and this isnot possible and she does not want an ambulance. She will go to [place] and wants to go to their associated [...] pt go to the ER. Call back [phone] ( direct line) documented in this encounter Plan of Treatment Not on file documented as of this encounter Visit Diagnoses Not on filedocumented in this encounter Care Teams Cardiac Cath Lab Manager Relationship Specialty [place] [address] [place] [address] PCP - General Family Medicine 03/12/25 Marci Rodriguez NP Nurse Practitioner Neurology 08/02/22 documented as of this encounter
--- OUTSIDE RECORDS SUMMARY | 2025-04-18 20:34 | XMS_ITS | Encounter Summary ---
Author Organization [facility] Address [address] [place] [address] Phone Care Team Providers Care Coordinator Of Evaluation Name Role Phone Marci Rodriguez PANEL GLUER Unavailable [phone] Dona Rayo MD Primary Care Provider Encounter Details Date Type Department Care Team (Late st Contact Info) Description 04/16/2025 Telephone [facility] Movement Disorders [address] [facility] 7th [place] [address] Mervat Tse, RN Social History [...] on file Legal Sex Female 4:53 AM REGULATORY ASSOCIATE Gender Identity Female 10/29/2021 11:06 AM REGULATORY ASSOCIATE Sexual Orientation Not on file documented as [...] Miscellaneous Notes * Addendum Note - Mervat Tse RN - 04/17/2025 3:35 PM CDTAddended by: [...] Department of Neurology Christine Andrade NP to De Josey De Anda RN (Selected Message) 04/17/25 [...] Movement Disorders Department of Neurology Sun Trammell [facility] Admin Pool (supporting Christine Andrade NP)16 hours [...] documented as of this encounter Care Teams Coordinator Of Evaluation Relationship Specialty [place] [address] [place] [address] PCP - General Family Medicine 03/12/25 Marci Rodriguez NP Nurse Practitioner Neurology 08/02/22 documented as of this encounter
--- OUTSIDE RECORDS SUMMARY | 2025-04-18 20:34 | XMS_ITS | Encounter Summary ---
Author Organization [facility] Address [address] [place] [address] Care Team Providers Care Encephalographer Name Role Phone Dona Rayo MD Primary [...] AM CDT Legal Sex Female 3:37 AM BLOCK PLACER Gender Identity Not on file Sexual Orientation Straight 07/17/2024 8: 55 AM CDT documented as of this encounter Plan of Treatment Upcoming Encounters Date Type Department Care Team (Late st Contact Info) Description 07/10/2025 1:45 PM CDT Office Visit [facility] [address] [place] [address] Sky Reid MD [address] [place] [address] documented as of this encounter Visit Diagnoses Not on filedocumented in this encounter Additional Health Concerns Assessment Noted Time PHQ-9 Depression Total Score: 2 12/14/19 25 2:07 PM CDT documented as of this encounter Care Teams Encephalographer Relationship Specialty [place] [address] [place] [address] PCP - General Family Practice 12/13/24 documented as of this encounter
--- OUTSIDE RECORDS SUMMARY | 2025-04-18 20:34 | XMS_ITS | Continuity of Care Document ---
Author Organization [employer] [facility] Address [address] [place] [address] Phone Care Team Providers Care Bowling Ball Assembler Name Role Phone Jayjay Orlando MD Unavailable Unavailable Allergies, Adverse Reactions, Alerts Substance Reaction Status Criticality Sulfa (Sulfonamide Antibiotics) Active No Information Medications Medication Instructions Dosage Effective Dates (start - stop) Status Comments carbidopa ER 50 mg-levodopa 200 mg tablet,extended release take 1 tablet by oral route 2 times every day 1.00 tablet - Active carbidopa 25 mg-levodopa 100 mg tablet take 1 tablet by oral route 4 times every day - Active Procedures Procedure Date Refraction Eye [...] Diagnoses Date Provider Providers Copied on Encounter [facility], [address], [place], [place], [address], [place] tel:[phone] SEC Chuy BORDEN Professional Complete Exam (chief complaint) Presence of intraocular lensChalazion of right lower eyelidMeibomia n gland dysfunction (MGD) of both eyesPunctate keratitis, bilateral 201 [address] Darion Ro[address], [facility] [[email or web address]] A, [place], [place], [address], [place]. tel:[phone] Referring Provider: Clifford Walton, [address], [place], [address] . tel:[phone] Office/outpa tient Visit, Est [facility], [address], [place], [place], [address], [place] tel:[phone] SEC Chuy BORDEN Professional 3 wks Chalazion f/u (chief complaint) Chalazion of right lower eyelid Jan- 9 Darion Ro. [address] [facility], [facility] [[email or web address]] A, [place], [place], [address], [place]. tel:[phone] Referring Provider: Clifford Walton, [facility] [employer] [address], [place], [address] . tel:[phone] Office/outpa tient Visit, [facility], [address] [place], [place] [address] [address], [place], [place], [address], [place] tel:[phone] SEC Chuy BORDEN Professional WIE (chief complaint) Chalazion of right lower eyelidMeibomia n gland dysfunction (MGD) of both eyesOcular rosaceaPunctat e keratitis, bilateral Dec- 9 Darion Ro. [address] [facility], [facility] [[email or web address]] A, [place], [place], [address], [place]. tel:[phone] Referring Provider: Clifford Walton, [facility] [employer] [address], [place], [address] . tel:[phone] Office/outpa tient Visit, [facility], [facility] [address], [place], [place], [address], [place] tel:[phone] SEC Chuy BORDEN Professional Follow up visit (chief complaint) Rosacea, unspecifiedBle pharitis of upper and lower eyelids of both eyes, unspecified typeDry eye syndrome of both eyes due to meibomian gland dysfunction 8 Yony Chanel. [address] [place], [address], [place]. tel:[phone] Referring Provider: Clifford Walton, [facility] [employer] [address], [place], [address] . tel:[phone] Office/outpa tient Visit, [facility], [email or web address], [place], [place], [address], [place] tel:[phone] SEC Chuy BORDEN Professional 2-3 wk Rosacea f/u (chief complaint) Rosacea, unspecifiedBle pharitis of both eyes with rosaceaMeibomi an gland dysfunction (MGD) of both eyes 8 Bhakta Yanique. [address] [place], [address], [place]. tel:[phone] Referring Provider: Clifford Walton, [address] [address], [place], [address] . tel:[phone] Office/outpa tient Visit, [facility], [address], [place], [place], [address], [place] tel:[phone] SEC Chuy BORDEN Professional red eye (chief complaint) Ocular rosacea 8 Bhakta Yanique. [address] [place], [address], [place]. tel:[phone] Referring Provider: Clifford Walton, [address], [place], [address] . tel:[phone] [facility], [email or web address] [address], [place], [place], [address], [place] tel:[phone] SEC Makenzie Kemp Complete Exam (chief complaint) Ocular rosaceaPresenc e of intraocular lensBenign neoplasm of right choroid 7 Tolu Horton. [address], [address], [place], [place], [address], [place]. tel:[phone] Referring Provider: Clifford Walton, [address], [place], [address] . tel:[phone] [facility], [email or web address] [address], [place], [place], [address], [place] tel:[phone] SEC Makenzie N [place] Complete Exam (chief complaint) No Information 8-201 6 Tolu Horton. [facility] [employer], [address], [place], [place], [address], . tel:[phone] Referring Provider: Clifford Walton, [facility] [employer] [address], [place], [address] . tel:[phone] [employer] [facility] [address], [place], [place], [address], tel:[phone] SEC [place] No Information 6 Tolu Horton. [facility] [employer], [address], [place], [place], [address], . tel:[phone] [employer] [facility] [address], [place], [place], [address], tel:[phone] SEC [place] N [place] Blurry vision (chief complaint) No Information 0- 5 Tolu Horton. [facility] [employer], [address], [place], [place], [address], . tel:[phone] Referring Provider: Clifford Walton, [address] [employer], [place], [address] . tel:[phone] Office/outpa tient Visit, [facility] [employer] [facility] [address], [place], [place], [address], tel:[phone] SEC [place] No Information 3-201 3 Tolu Horton. [address], [address], [place], [place], [address], . tel:[phone] Referring Provider: Clifford Walton, [address], [place], [address] . tel:[phone] [employer] [address], [place], [place], [address], [place] tel:[phone] SEC Makenzie N [place] No Information 3 Tolu Horton. [address], [address], [place], [place], [address], [place]. tel:[phone] Referring Provider: Clifford Walton, [address], [place], [address] . tel:[phone] [facility], [address], [place], [place], [address], [place] tel:[phone] SEC [place] No Information 3 Tolu Horton. [address], [address], [place], [place], [address], [place]. tel:[phone] Referring Provider: Clifford Walton, [address], [place], [address] . tel:[phone] [facility], [address], [place], [place], [address], [place] tel:[phone] SEC Makenzie N [place] No Information 3 Tolu Clifford. [address], [address], [place], [place], [address], [place]. tel:[phone] Referring Provider: Clifford Walton, [address], [place], [address] . tel:[phone] [facility], [address], [place], [place], [address], [place] tel:[phone] SEC [place] No Information 3 Tolu Horton. [address], [address], [place], [place], [address], [place]. tel:[phone] Referring Provider: Clifford Walton, [address], [place], [address] . tel:[phone] [facility], [address], [place], [place], [address], [place] tel:[phone] SEC [place] No Information 0 6-201 3 Steiner Ariel. [address] [facility], [address], [place], [place], [address], [place]. tel:[phone] Referring Provider: Clifford Walton, [address] [place] [address] [address], [place], [address] . tel:[phone] [facility], [address] [place] [address] [address], [place], [place], [address], [place] tel:[phone] SEC Makenzie N [place] No Information 0- 3 Danielle Carrington. [address] [place] [facility], [address], [place], [place], [address], [place]. tel:[phone] Referring Provider: Clifford Walton, [address] [place] [address], [place], [address] . tel:[phone] [facility], [address] [place] [address] [address], [place], [place], [address], [place] tel:[phone] [facility] No Information 3 Tolu Horton. [address] [place] [address], [address], [place], [place], [address], [place]. tel:[phone] Referring Provider: Clifford Walton, [address] [place] [address], [place], [address] . tel:[phone] [facility], [address], [place], [place], [address], [place] tel:[phone] SEC Makenzie N [place] No Information 3-201 3 Steiner Ariel. [address] [facility], [address], [place], [place], [address], [place]. tel:[phone] Referring Provider: Clifford Walton, [facility] [address], [place], [address] . tel:[phone] [facility], [address], [place], [place], [address], [place] tel:[phone] SEC [place] Oscar [place] No Information 3 Steinerbrooks Arriagael. [address] [facility], [address], [place], [place], [address], [place]. tel:[phone] Referring Provider: Clifford Walton, [facility] [address], [place], [address] . tel:[phone] [facility], [address] [place] [address] [address], [place], [place], [address], [place] tel:[phone] SEC Makenzie N [place] No Information 3 Steiner Ariel. [address] [facility], [address], [place], [place], [address], [place]. tel:[phone] Referring Provider: Clifford Walton, [facility] [address], [place], [address] . tel:[phone] [facility], [address] [place] [address] [address], [place], [place], [address], [place] tel:[phone] [facility] No Information 3 Tolu Horton. [address], [address], [place], [place], [address], [place]. tel:[phone] Referring Provider: Clifford Walton, [address] [place], [place] [address], [place], [address] . tel:[phone] [facility], [address], [place], [place], [address], [place] tel:[phone] SEC [place] No Information 3 Tolu Horton. [address] [employer], [address], [place], [place], [address], [place]. tel:[phone] Referring Provider: Clifford Walton, [facility] [address], [place], [address] . tel:[phone] [facility], [address], [place], [place], [address], [place] tel:[phone] SEC Makenzie N [place] No Information 3 Jatin George. [address] [facility], [address], [place], [place], [address], [place]. tel:[phone] Office/outpa tient Visit, [facility], [address] [place] [address] [address], [place], [place], [address], [place] tel:[phone] SEC [place] No Information 3 Tolu Horton. [facility] [employer], [address], [place], [place], [address], [place]. tel:[phone] Office/outpa tient Visit, [facility], [address], [place], [place], [address], [place] tel:[phone] SEC Makenzie N [place]bergh No Information 2 Tolu Horton. [facility] [employer], [address], [place], [place], [address], [place]. tel:[phone] Referring Provider: Clifford Walton, [facility] [employer] [address], [place], [address] . tel:[phone] Office/outpa tient Visit, [facility], [address] [place] [address] [address], [place], [place], [address], [place] tel:[phone] SEC [place] N [place] No Information 2 Tolu Horton. [facility] [employer], [address], [place], [place], [address], [place]. tel:[phone] [facility], [address], [place], [place], [address], [place] tel:[phone] [place] No Information 9-201 0 Tolu Clifford. [address], [address], [place], [place], [address], [place]. tel:[phone] Referring Provider: Clifford Walton, [facility] [address], [place], [address] . tel:[phone] [facility]/outpa tient Visit, [facility], [address] [employer] [address], [place], [place], [address], [place] tel:[phone] SEC [place] No Information 7201 0 Jatin George. [address] [facility], [address], [place], [place], [address], [place]. tel:[phone] [facility], [address], [place], [place], [address], [place] tel:[phone] SEC Makenzie N [place]berg[place] No Information 0-200 9 Tolu Clifford. [facility] [employer], [address], [place], [place], [address], [place]. tel:[phone] Referring Provider: Clifford Walton, [facility] [address], [place], [address] . tel:[phone] [facility], [facility] [address] [place] [address], [place], [place], [address], [place] tel:[phone] [place] No Information 2-200 8 Tolu Horton. [facility] [employer], [address], [place], [place], [address], [place]. tel:[phone] Referring Provider: Clifford Walton, [address] [place], [place] [address], [place], [address] . tel:[phone] [facility], [address], [place], [place], [address], tel:[phone] SEC Makenzie Teague No Information 7 Tolu Horton. [address], [address], [place], [place], [address], [place]. tel:[phone] Referring Provider: Clifford Walton, [address], [place], [address] . 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 Rec warm compress and massage along with AT's. Sample given to pt. Continue Noritate as needed for Rosacea. Copy of Rx printed for pt to have this filled. New spec Rx given at pt's request. Return to the office in 1 yr or sooner if vision worsens. Presence of intraocu lar lens - New glasses Rx given Related to Presence of intraocular lens - 1 yr complete Related to See l ist of assessments above - Discussed dx with pt. Ok to continue generic Noritate 0.75% qday. ERX to [facility] with 12 refills. Rec spec adjustment. Printed out old Rx for pt if unable to have these adjusted. 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 No treatment is required at this time. Will continue to observe condition and or symptoms. Call if VA worsens. Patient instructed to use artificial tears as neededprior to going to sleep. Educational materials provided:about today's exam.Erx Noritate cream to [facility]. 12 refills. 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 Related to Cataract, PSC - 6 month cat eval Related to Ca taract, Nuclear Sclerosis Choroidal Nevus, OD - established, stable - vision not affected - will continue to monitor - Discussed diagnosis with patient. Condition is stable, no change in treatment regimen. Will continue to monitor condition. 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
--- OUTSIDE RECORDS SUMMARY | 2025-04-18 20:34 | XMS_ITS | Referral Summary ---
Author Organization [facility] [place] Address [facility] [place] [address] Care Team Providers Care Lead Systems Architect Name Role Phone Marci Rodriguez REGIONAL SALES LEADER Unavailable [phone] Dona Rayo MD Primary Care Provider Encounters Date Type Department Care Team Description 04/18/2025 Telephone [facility] Movement Disorders [address] [place] [address] Advanced Medicine [address] [place] [phone] Brynn Lagunas MD PhD 04/16/2025 Telephone [facility] Movement Disorders Critical access hospital1 [address] [phone] Gogo Tse RN 03/27/2025 Documentation [facility] Movement Disorders Critical access hospital1 [facility] Advanced [address] [phone] Sandeep Ariza RMA 03/26/2025 Orders Only [facility] Movement Disorders [address] [place] [address] [place] [phone] Brynn Lagunas MD PhD 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); Dystonia; Orthostatic hypotension; REM sleep behavior disorder; Anxiety disorder, unspecified type; Other insomnia; Freezing of gait 03/12/2025 2:30 PM CDT Office Visit [facility] Movement Disorders [address] [place] [address] Christine Andrade NP Parkinson's disease [...] 08/05/2022 Assessment & Plan (12/02/2023 8:08 PM CURATOR NATURAL HISTORY MUSEUM): She has painful diphasic dystonia secondary to [...] patient. Assessment & Plan (09/14/2024 12:51 PM CURATOR NATURAL HISTORY MUSEUM): She has stage 3 parkinsonism manifest as [...] today. Assessment & Plan (08/26/2023 3:35 PM CURATOR NATURAL HISTORY MUSEUM): She has stage 3 idiopathic PD manifest [...] no excessive daytime sleepiness as reflected by [place] of 3. The PDQ-39 score of 68 [...] services. Assessment & Plan (09/16/2021 3:26 PM CURATOR NATURAL HISTORY MUSEUM): Patient continues on combination Sinemet CR and Sinemet IR formulations on a q.i.d. regiment respectively. She does not have any he exhibited dyskinesias as she has had in past. Given my pending [facility]p she is requesting transfer in neurologic care to [facility] in a referral for such as [...] reassessment. Assessment & Plan (08/08/2020 2:05 PM CURATOR NATURAL HISTORY MUSEUM): Since last being seen she has been [...] Immunization Administration Dates Next Due COVID-19 mRNA ([employer]) 0.3 m L (30 mcg) vaccine (12 years and up) 07/10/2024 Influenza, Quad, Adjuvantate d, Intramuscular 06/22/2022 Influenza, Quadrivalent, Hig h Dose, Preservative Free, Intrr 07/01/2023 Influenza, Trivalent, High D ose, Split, Preservative Free, Intramuscular 07/10/2024 Influenza, Trivalent, IM (MDV) 07/10/2021 jigl SARS-CoV-2 Monovalent Vaccination (12+ Yrs) [place]-READY TO [...] on file Legal Sex Female 4:53 AM CURATOR NATURAL HISTORY MUSEUM Gender Identity Female 10/29/2021 11:06 AM CURATOR NATURAL HISTORY MUSEUM Sexual Orientation Not on file Last Filed Vital Signs Vital Sign Reading Time Taken Comments Blood Pressure 181/95 09/11/2024 12:47 PM CURATOR NATURAL HISTORY MUSEUM Pulse 89 03/12/2025 2:14 PM CDT Temperature 36.2 C (97.1 F) 02/19/2023 11:17 AM CDT Respiratory Rate 24 12/08/2022 1:03 PM CURATOR NATURAL HISTORY MUSEUM Oxygen Saturation 89% 12/08/2022 1:03 PM CURATOR NATURAL HISTORY MUSEUM Inhaled Oxygen Concentration - - Weight 47.1 kg (103 lb 12.8 oz) 03/12/2025 2:14 PM CDT Height 167 cm (5' 5.75) 03/12/2025 2:14 PM CDT Body Mass Index 16.88 03/12/2025 2:14 PM CDT Plan of Treatment Not on file Insurance [facility] MEDIC[facility] ADVANTAGE UHC MEDICARE ADVANTAGE Member Subscriber Plan / Payer (Ef fective 2022-Present) Name:Sun Horton Relation to Subscriber:Self Name:Sun Horton Payer ID:[id number] (NAIC) Type:[facility] MEDIC[facility] Address: [place] [id number] UHC MEDICARE ADVANTAGE Advance Directives For more information, please contact: [phone] Documents on File Type Date Recorded Patient Textile Artist Expl anation Advance Directives and Livin g Will 08/03/2023 10:51 AM Care Teams Lead Systems Architect Relationship Specialty [place] [address] [place] [address] PCP - General Family Medicine 03/12/25 Marci Rodriguez NP Nurse Practitioner Neurology 08/02/22
--- OUTSIDE RECORDS SUMMARY | 2025-04-18 20:34 | XMS_ITS | Clinical Summary ---
Author Organization [facility] Address [address] [place] [address] Care Team Providers Care Licensed Marine Engineer Name Role Phone Marci Rodriguez UNCLAIMED PROPERTY OFFICER Unavailable [phone] Dona Rayo MD Primary Care Provider [phone] Allergies Active Allergy Reactions Criticality Noted Date [...] 08/05/2022 Assessment & Plan (12/02/2023 8:08 PM WEAVING LOOM OPERATOR): She has painful diphasic dystonia secondary [...] patient. Assessment & Plan (09/14/2024 12:51 PM WEAVING LOOM OPERATOR): She has stage 3 parkinsonism manifest [...] today. Assessment & Plan (08/26/2023 3:35 PM WEAVING LOOM OPERATOR): She has stage 3 idiopathic PD [...] no excessive daytime sleepiness as reflected by [place] of 3. The PDQ-39 score of 68 [...] services. Assessment & Plan (09/16/2021 3:26 PM WEAVING LOOM OPERATOR): Patient continues on combination Sinemet CR and Sinemet IR formulations on a q.i.d. regiment respectively. She does not have any he exhibited dyskinesias as she has had in past. Given my pending senior living she is requesting transfer in neurologic care to [facility] in a referral for such as been [...] reassessment. Assessment & Plan (08/08/2020 2:05 PM WEAVING LOOM OPERATOR): Since last being seen she has [...] Type Department Care Team Description 04/18/2025 Telephone [facility] Movement Disorders Critical access hospital1 [address] [phone] Brynn Lagunas MD PhD 04/16/2025 Telephone [facility] Critical access hospital[facility] [address] [address] Gogo Tse RN 03/27/2025 Documentation [facility] Movement Disorders [address] [place] [phone] Sandeep Ariza RMA 03/26/2025 Orders Only [facility] Movement [facility] [address] [place] [phone] Brynn Lagunas MD PhD 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); Dystonia; Orthostatic hypotension; REM sleep behavior disorder; Anxiety disorder, unspecified type; Other insomnia; Freezing of gait 03/12/2025 2:30 PM CDT Office Visit [facility] Movement Disorders [address] [place] [phone] Christine Andrade NP 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); Levodopa-induced dyskinesia; Dystonia; Orthostatic hypotension; REM sleep behavior disorder; Other insomnia; Anxiety disorder, unspecified type; Freezing of gait from Last 3 Months Immunizations Immunization Administration Dates Next Due COVID-19 mRNA ([employer] (QEEP)) 0.3 m L (30 mcg) vaccine (12 years and up) 07/10/2024 Influenza, Quad, Adjuvantate d, Intramuscular 06/22/2022 Influenza, Quadrivalent, Hig h Dose, Preservative Free, Intrr 07/01/2023 Influenza, Trivalent, High D ose, Split, Preservative Free, Intramuscular 07/10/2024 Influenza, Trivalent, IM (MDV) 07/10/2021 [place]ineon SARS-CoV-2 Monovalent Vaccination (12+ Yrs) [place]-READY TO [...] on file Legal Sex Female 4:53 AM WEAVING LOOM OPERATOR Gender Identity Female 10/29/2021 11:06 AM WEAVING LOOM OPERATOR Sexual Orientation Not on file Obstetrics History Last Filed Vital Signs Vital Sign Reading Time Taken Comments Blood Pressure 181/95 09/11/2024 12:47 PM WEAVING LOOM OPERATOR Pulse 89 03/12/2025 2:14 PM CDT Temperature 36.2 C (97.1 F) 02/19/2023 11:17 AM CDT Respiratory Rate 24 12/08/2022 1:03 PM WEAVING LOOM OPERATOR Oxygen Saturation 89% 12/08/2022 1:03 PM WEAVING LOOM OPERATOR Inhaled Oxygen Concentration - - Weight [...] 04/03/2006 Breast Cancer Screening-Mammogram Discontinued 011 Insurance [facility] Advance Directives For more information, please contact: [phone] Documents on File Type Date Recorded Patient Throat Cutter Expl anation Advance Directives and Livin g Will 08/03/2023 10:51 AM Care Teams Licensed Marine Engineer Relationship Specialty [place] [address] [place] [address] PCP - General Family Medicine 03/12/25 Marci Rodriguez NP Nurse Practitioner Neurology 08/02/22
--- OUTSIDE RECORDS SUMMARY | 2025-04-18 20:34 | XMS_ITS | Encounter Summary ---
Author Organization [facility] Address 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 Gender Identity Not on file Sexual Orientation Straight 07/17/2024 8: 55 AM CDT documented as of this encounter Plan of Treatment Upcoming Encounters Date Type Department Care Team (Late st Contact Info) Description 07/10/2025 1:45 PM CDT Office Visit [facility] Endocrinology [address] [place] [address] Sky Reid MD [address] [place] [address] documented as of this encounter Visit Diagnoses Not on filedocumented in this encounter Additional Health Concerns Assessment Noted Time PHQ-9 Depression Total Score: 2 12/14/19 25 2:07 PM CDT documented as of this encounter Care Teams Election Clerk Relationship Specialty [place] [address] [place] [address] PCP - General Family Practice 12/13/24 documented as of this encounter
--- OUTSIDE RECORDS SUMMARY | 2025-04-18 20:34 | XMS_ITS | Encounter Summary ---
Author Organization [facility] Address 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 Gender Identity Not on file Sexual Orientation Straight 07/17/2024 8: 55 AM CDT documented as of this encounter Plan of Treatment Upcoming Encounters Date Type Department Care Team (Late st Contact Info) Description 07/10/2025 1:45 PM CDT Office Visit [facility] Endocrinology [address] [place] [address] Sky Reid MD [address] [place] [address] documented as of this encounter Procedures Procedure Name Priority Date/Time Associated Diagnosis Comments MRI BRAIN W WO CONTRAST Routine 01/30/2008 9:52 AM CDT documented in this encounter Results * MRI BRAIN W WO CONTRAST (01/30/2008 9:52 AM CDT) Anatomical Region Laterality Modality Head Other 01/30/2008 9:52 AM CDT Narrative 01/31/2008 4:46 PM CDT [facility] [address] [place], [place] [address] Admit Date: 01/30/2008 CECILIA RAM Sex: F Admit Prov: JAMES STAHL Date: 1945 Primary Care Prov: ROOSEVELT PERERA CMRN: [id number] Room: [facility]: [id number] IMAGING SERVICES Ordering Prov: N/A Accession Number: [id number] Interpretation MR imaging of brain with and [...] AMK Procedure Note Provider, Historical - 01/31/2008 [place] [address] [place], [place] [address] Admit Date: 01/30/2008 CECILIA RAM Sex: F Admit Prov: JAMES STAHL Date: 1945 Primary Care Prov: ROOSEVELT PERERA CMRN: [id number] Room: [facility]: [id number] IMAGING SERVICES Ordering Prov: N/A Interpretation MR [...] neuropathy documented in this encounter Care Teams Dairy Scientist Relationship Specialty [place] [address] [place] [address] PCP - General Family Practice 12/13/24 documented as of this encounter
[2025-04-18 21:27] LABS: Add Urine Microscopic? YES; Appearance Urine Clear (Clear); Glucose Urine UA Negative (Negative); Leukocyte Esterase Ur Negative LEU/UL (Negative); Nitrate Urine Negative (Negative); Non Pathogenic Casts 0-2; Specific Grav Ur 1.020 (1.001-1.035)
[2025-04-18 21:31] LABS: Hematocrit 37.9 % (37.0-47.0); Hemoglobin 12.2 g/dL (12.0-15.0); Immature Granulocyte Percent A 0.2 % (0-0.5); Lymphocytes Absolute Auto 1.00 K/mm3 (0.9-3.2); Mean Corpuscular HGB Conc 32.2 g/dl (32-36); Mean Corpuscular Hemoglobin 31.7 pg (26-34); Mean Corpuscular Volume 98.4 fl (80-100); Nucleated Red Blood Cells Absolute Auto 0.000 K/mm3 (0.0-0.012); Nucleated Red Blood Cells Perc 0.0 % (0.0-0.2); Platelet Count Result 287 k/mm3 (150-375); Red Blood Count 3.85 M/mm3 (4.2-5.4); White Blood Count 6.5 K/mm3 (4.5-10.0)
[2025-04-18] MEDS: LACTATED RINGERS 1,000 ML 999 ML IV CONT ×2 (21:36→22:40)
[2025-04-18] MEDS: MORPHINE SULFATE (*CRX) 2 MG/ML INJ IV PUSH (21:36)
[2025-04-18] MEDS: diazePAM INJ (*CRX) 10 MG/2 ML SYRINGE 2.5 MG IV PUSH (21:36)
[2025-04-18 21:42] LABS: Albumin Level 4.6 g/dL (3.5-5.1); Alkaline Phosphatase 64 U/L (38-126); Anion Gap 8 mmol/L (4-12); Aspartate Amino Transferase 24 U/L (14-36); Bilirubin,Total 1.1 mg/dL (0.2-1.3); Blood Urea Nitrogen 39 mg/dL (7-17); Calcium 9.1 mg/dL (8.4-10.2); Carbon Dioxide 27 mmol/L (22-30); Chloride 103 mmol/L (98-107); Estimated CRCL calculation 32 ml/min; Estimated Glomerular Filt Rate > 60; Glucose 96 mg/dL (65-110); Magnesium 2.2 mg/dL (1.6-2.3); Potassium 3.6 mmol/L (3.4-5.0); Sodium 138 mmol/L (137-145); Total Protein 8.3 g/dL (6.3-8.2)
[2025-04-18 21:54] LABS: Troponin I 0.022 ng/mL (0.000-0.034)
[2025-04-18 22:27] LABS: Alanine Aminotransferase < 6 U/L (6-35)
[2025-04-18 22:43] VITALS: BP 208/102; PULSE 84; RESP 16; O2SAT 96
[2025-04-19] VITALS (18 sets, daily range): BP systolic 108–187; BP diastolic 63–98; PULSE 78–90; RESP 16–22; TEMP 36.4–36.9; O2SAT 95–99; BMI 17.2; BMI 17.3
[2025-04-19 00:21] LABS: Troponin I 0.042 ng/mL (0.000-0.034)
--- NOTE | 2025-04-19 00:45 | ECG_ITS ---
Test Date: 2025-04-19 00:41:35 Measurements Intervals [place] Rate: 78 P: 23 GA: 145 QRS: -21 QRSD: 91 T: 87 QT: 361 QTc: 412 Interpretive Statements SINUS RHYTHM LEFT ATRIAL ENLARGEMENT [-0.15mV P-WAVE IN V1/V2] BORDERLINE LEFT AXIS DEVIATION [QRS AXIS < -20] LEFT VENTRICULAR HYPERTROPHY AND ST-T CHANGE [VOLTAGE CRITERIA PLUS ST/T ABNORMALITY] Compared to ECG 04/18/2025 20:54:18 No significant changes Electronically Signed On 04-19-2025 14:40:08 CDT by William Mosley M.D.
[2025-04-19] MEDS: ASPIRIN 325 MG TABLET PO (01:24)
--- NOTE | 2025-04-19 02:15 | ADMGEN ---
This patient, Sun Horton, was admitted to IMU Room 204-01 via bed with one tech and no issues. Report received from Jason MARIN. Patient/family oriented to hospital policies and general routines including ID bracelet, bed and alarms, visiting hours, pain management, procedures, bathroom and other care routines, personal items, smoking policy, room service/diet, and visiting hours. Information on how to activate the Rapid Response Team has been discussed. Patient/Family are encouraged to report perceived risks to care and to ask questions if they do not understand what they are told or what they should do.
--- NOTE | 2025-04-19 02:20 | WNDPHOTO ---
PHOTO ONLY - See Nursing Notes and/ or assessments for documentation.
[2025-04-19 04:03] LABS: Troponin I 0.052 ng/mL (0.000-0.034)
[2025-04-19 06:53] LABS: Troponin I 0.045 ng/mL (0.000-0.034)
[2025-04-19] MEDS: CALCIUM CARBONATE (OSCAL) 500 MG TABLET PO (08:23)
[2025-04-19] MEDS: HYDROcodone/acetaminophen (*CRX) 5-325 MG TABLET 1 TAB PO (08:24)
[2025-04-19] MEDS: AMANTADINE HCL 100 MG CAPSULE PO ×2 (08:24→17:57)
[2025-04-19] MEDS: MIRABEGRON 25 MG ER TABLET PO (08:24)
[2025-04-19] MEDS: CYANOCOBALAMIN 1,000 MCG TABLET 1000 MCG PO (08:24)
--- NOTE | 2025-04-19 10:58 | PHAR ---
Drug Name:?Rytary ( Carbidopa -- 48.75 MG Levodopa -- 195 MG) Color:?Blue ,?Yellow Imprint:??[id number] Imprint Code Description:?Capsule imprinted with [id number] on the capsule cap and 195 on the capsule body. Form:?Oral Capsule, Extended Release
[2025-04-19] MEDS: THERAPEUTIC MULTIVITAMINS/MINERALS TAB (*BKC) 1 TABLET PO (11:47)
[2025-04-19] MEDS: CARBIDOPA LEVODOPA 1 EACH PO ×3 (11:47→17:57)
--- NOTE | 2025-04-19 14:48 | P.HP_ITS ---
H&P: [facility] History of Present Illness Date/Time: 04/19/25 14:48 Chief Complaint: weakness Narrative: patient with history of Parkinson's dementia, dyskinesia, hypotension on midodrine presented with weakness and difficulty with ambulating for several moths that has been getting worse recently. she also has been having several episodes of fall because of weakness . past week she feel down 2 times. denies any head injury or loss of consciousness. patient denies any chest pain,SOB,Cough,Abd pain, urinary symptoms. denies any focal neurological symptoms. presented to Er for further management. in the Er Bp was elevated and received hydralazine.lab tests grossly unremarkable except for troponin which was mildly elevated and remained flat. she denies any chest pain, EKG reviewed no acute ischemic changes. she was admitted for further work up and possible placement. Review of Systems Review of Systems: As reviewed above in HPI [facility] Past Medical History Medical History Acute arthritis Dystonia Parkinson disease Surgical History Surgical History H/O knee surgery History of cholecystectomy Social History Social History Smoking status: Never smoker Second hand tobacco smoke exposure: No Alcohol intake: current Drinks per week: 1 Substance use: never Substance use type: does not use Do You Feel Safe in your Home?: Yes Lack of Transportation: No Lack of Food: Never True Current Housing: I Have Housing Concerned About Future Housing: No Difficulty Paying Gas/Electric Bills: No Difficulty Paying for Meds: No Currently Unemployed: No Education: High School Diploma/GED Difficulty w/ Childcare or Family Care: No Living arrangements: [place] Occupation/Education: retired Gender identity (if verbalized by the patient): Female Sexual Orientation (if Verbalized by the Patient): Straight or Heterosexual Spiritual care concerns: No Meds Home Medications and Allergies Home Medications ?Medication ?Instructions ?Recorded ?Confirmed ?Type carbidopa 25 mg-levodopa 100 mg 1 tablet PO QHS PRN tremors 11/17/23 04/19/25 History tablet carbidopa ER 48.75 mg-levodopa 195 1 cap PO TID 11/17/23 04/19/25 History mg capsule,extended release (Rytary) hydrocodone 2.5 mg-acetaminophen 1 tablet PO QHS PRN pain 11/17/23 04/19/25 History 325 mg tablet midodrine 5 mg tablet 12.5 mg PO TID 11/17/23 04/19/25 History mirabegron 25 mg tablet,extended 25 mg PO DAILY 11/17/23 04/19/25 History release 24 hr (Myrbetriq) amantadine HCl 100 mg capsule 100 mg PO BID 04/19/25 04/19/25 History calcium 500 mg tablet 500 mg PO DAILY 04/19/25 04/19/25 History clobetasol 0.05 % topical ointment 1 applic topical PRN 04/19/25 04/19/25 History magnesium 200 mg PO DAILY 04/19/25 04/19/25 History mecobalamin (vitamin B12) 1,000 mcg PO DAILY 04/19/25 04/19/25 History multivit with min-folic acid 1 tablet PO DAILY 04/19/25 04/19/25 History Allergies Allergy/AdvReac Type Severity Reaction Status Date / Time Sulfa (Sulfonamide AdvReac Dry Eye Verified 11/17/23 14:52 Antibiotics) Vital Signs Vital Signs - 24 hr 04/18/25 17:58 04/18/25 22:43 04/19/25 00:30 Temperature 97.6 F Pulse Rate 84 84 78 Respiratory Rate 40 H 16 16 Blood Pressure 182/102 H 208/102 H 108/63 Pulse Oximetry 98 96 98 Oxygen Delivery Room Air 04/19/25 02:00 04/19/25 02:30 04/19/25 02:33 Temperature 97.9 F Pulse Rate 80 89 82 Respiratory Rate 17 18 Blood Pressure 123/98 H 126/64 Pulse Oximetry 98 97 Oxygen Delivery 04/19/25 04:00 04/19/25 04:00 04/19/25 06:00 Temperature 97.7 F Pulse Rate 85 89 90 Respiratory Rate 16 Blood Pressure 160/79 H Pulse Oximetry 95 Oxygen Delivery 04/19/25 07:56 04/19/25 08:00 04/19/25 08:00 Temperature 98.3 F Pulse Rate 80 84 Respiratory Rate 16 Blood Pressure 158/74 H Pulse Oximetry 99 Oxygen Delivery Room Air 04/19/25 10:00 04/19/25 10:59 04/19/25 11:29 Temperature 98.2 F Pulse Rate 88 85 Respiratory Rate 18 Blood Pressure 132/67 Pulse Oximetry 99 Oxygen Delivery Room Air 04/19/25 12:00 04/19/25 12:00 Temperature Pulse Rate 83 Respiratory Rate Blood Pressure Pulse Oximetry Oxygen Delivery Room Air Exam Narrative: GENERAL: Elderly and frail, mildly tachypneic, not any acute distress and very tearful in affect. HEAD: [Normocephalic, atraumatic.] EYES: [PERRLA and EOMI.] ENT: Nares clear, no rhinorrhea or epistaxis. Mucous membranes moist. NECK: Supple. CHEST: [Clear to auscultation. No respiratory distress.] Speaks in clear sentences, painting occasionally and feeling anxious HEART: [Regular rate and rhythm]. No murmur heard. [Normal peripheral pulses.] ABDOMEN: [Soft, nondistended], [nontender], [No rigidity or guarding] EXTREMITIES: Normal range of motion. [No edema.] SKIN: Warm, dry, no rash. NEURO: Diffuse cogwheel rigidity with contractions of the lower extremities. No obvious focal deficits and able to move both arms and legs, no facial asymmetry or dysarthria, no facial droop. Alert and oriented [x3.] PSYCH: Anxious and tearful H&P: Results Labs Labs: Short CBC 04/18/25 Range/Units 20:56 WBC 6.5 (4.5-10.0) K/mm3 Hgb 12.2 (12.0-15.0) g/dL Hct 37.9 (37.0-47.0) % Plt Count 287 (150-375) k/mm3 [facility] 04/18/25 20:56 Sodium 138 Potassium 3.6 Chloride 103 Carbon Dioxide 27 BUN 39 H D Creatinine 0.89 Glucose 96 Calcium 9.1 Cardiac Enzymes 04/18/25 04/18/25 04/19/25 Range/Units 20:56 23:36 03:10 Troponin I 0.022 0.042 H* D 0.052 H* D (0.000-0.034) ng/mL 04/19/25 Range/Units 06:00 Troponin I 0.045 H* (0.000-0.034) ng/mL Liver Function 04/18/25 Range/Units 20:56 Total Bilirubin 1.1 (0.2-1.3) mg/dL AST 24 (14-36) U/L ALT < 6 L (6-35) U/L Alkaline Phosphatase 64 (38-126) U/L Albumin 4.6 (3.5-5.1) g/dL Urine 04/18/25 Range/Units 21:16 Urine Color Yellow (Yellow) Urine Appearance Clear (Clear) Urine pH 5.5 (5.0-9.0) Ur Specific [place] 1.020 (1.001-1.035) Urine Protein 1+ H (Negative) mg/dL Urine Glucose (UA) Negative (Negative) mg/dL Assessment and Plan Assessment and plan (1) Parkinson's disease: Code(s): G20.A1 - Parkinson's disease without dyskinesia, without mention of fluctuations Status: Acute (2) Generalized weakness: Code(s): R53.1 - Weakness Status: Acute (3) Elevated troponin: Code(s): R79.89 - Other specified abnormal findings of blood chemistry Status: Acute (4) Hypertensive emergency without congestive heart failure: Code(s): I16.1 - Hypertensive emergency Status: Acute (5) Cystocele with uterine prolapse: Code(s): N81.4 - Uterovaginal prolapse, unspecified Status: Acute (6) Dyskinesia: Code(s): G24.9 - Dystonia, unspecified Status: Acute (7) Osteoporosis: Code(s): M81.0 - Age-related osteoporosis without current pathological fracture Status: Acute (8) Weakness: Code(s): R53.1 - Weakness Status: Acute (9) HTN (hypertension), benign: Code(s): I10 - Essential (primary) hypertension Status: Acute Plan weakness, frequent fall PT/OT possible placement HTN Will decrease midodrine continue to monitor elevated troponin in setting of HTN trending down continue to monitor Parkinson disease 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
[2025-04-19] MEDS: SENNA/DOCUSATE SODIUM TABLET 1 TAB PO (21:02)
[2025-04-20] VITALS (7 sets, daily range): BP systolic 117–192; BP diastolic 62–98; PULSE 87–94; RESP 18–20; TEMP 36.2–36.8; O2SAT 96–100
[2025-04-20 04:18] LABS: Hematocrit 41.4 % (37.0-47.0); Hemoglobin 13.3 g/dL (12.0-15.0); Mean Corpuscular HGB Conc 32.1 g/dl (32-36); Mean Corpuscular Hemoglobin 31.7 pg (26-34); Mean Corpuscular Volume 98.6 fl (80-100); Platelet Count Result 297 k/mm3 (150-375); Red Blood Count 4.20 M/mm3 (4.2-5.4); White Blood Count 8.1 K/mm3 (4.5-10.0)
[2025-04-20 04:41] LABS: Anion Gap 7 mmol/L (4-12); Blood Urea Nitrogen 20 mg/dL (7-17); Calcium 9.8 mg/dL (8.4-10.2); Carbon Dioxide 27 mmol/L (22-30); Chloride 102 mmol/L (98-107); Estimated CRCL calculation 44 ml/min; Estimated Glomerular Filt Rate > 60; Glucose 99 mg/dL (65-110); Potassium 3.6 mmol/L (3.4-5.0); Sodium 136 mmol/L (137-145)
[2025-04-20] MEDS: CYANOCOBALAMIN 1,000 MCG TABLET 1000 MCG PO (08:37)
[2025-04-20] MEDS: ENOXAPARIN 40 MG/0.4 ML SYRINGE SUB-Q (08:37)
[2025-04-20] MEDS: AMANTADINE HCL 100 MG CAPSULE PO ×2 (08:37→17:31)
[2025-04-20] MEDS: MIRABEGRON 25 MG ER TABLET PO (08:37)
[2025-04-20] MEDS: CALCIUM CARBONATE (OSCAL) 500 MG TABLET PO (08:37)
[2025-04-20] MEDS: THERAPEUTIC MULTIVITAMINS/MINERALS TAB (*BKC) 1 TABLET PO (08:38)
[2025-04-20] MEDS: CARBIDOPA LEVODOPA 1 EACH PO (08:39)
[2025-04-20] MEDS: [UNRECOGNIZED DRUG - OTHER] PO ×2 (10:53→17:31)
[2025-04-20] MEDS: CARBIDOPA LEVODOPA PO ×4 (10:53→21:23)
--- NOTE | 2025-04-20 13:24 | P.PNIM_ITS ---
Progress Note: A&P Assessment and Plan (1) Parkinson's disease: Code(s): G20.A1 - Parkinson's disease without dyskinesia, without mention of fluctuations Status: Acute (2) Generalized weakness: Code(s): R53.1 - Weakness Status: Acute (3) Elevated troponin: Code(s): R79.89 - Other specified abnormal findings of blood chemistry Status: Acute (4) Hypertensive emergency without congestive heart failure: Code(s): I16.1 - Hypertensive emergency Status: Acute (5) Cystocele with uterine prolapse: Code(s): N81.4 - Uterovaginal prolapse, unspecified Status: Acute (6) Dyskinesia: Code(s): G24.9 - Dystonia, unspecified Status: Acute (7) Osteoporosis: Code(s): M81.0 - Age-related osteoporosis without current pathological fracture Status: Acute (8) Weakness: Code(s): R53.1 - Weakness Status: Acute (9) HTN (hypertension), benign: Code(s): I10 - Essential (primary) hypertension Status: Acute Plan weakness, frequent fall PT/OT possible placement HTN hold midodrine continue to monitor elevated troponin in setting of HTN trending down continue to monitor Parkinson disease [employer] meds mild hyponatremia continue to monitor overactive bladder Myrbetriq DVT PPX Lovenox Subjective Date/time seen: 04/20/25 13:24 Interval history: per HPI: patient with history of Parkinson's dementia, dyskinesia, hypotension on midodrine presented with weakness and difficulty with ambulating for several moths that has been getting worse recently. she also has been having several episodes of fall because of weakness . past week she feel down 2 times. denies any head injury or loss of consciousness. patient denies any chest pain,SOB,C ough,Abd pain, urinary symptoms. denies any focal neurological symptoms. presented to Er for further management. in the Er Bp was elevated and received hydralazine.lab tests grossly unremarkable except for troponin which was mildly elevated and remained flat. she denies any chest pain, EKG reviewed no acute ischemic changes. she was admitted for further work up and possible placement. 04/20/25 Patient was seen and examined at bedside. she is feeling better. her weakness is better. denies any chest pain, abd pain, N/V. Pending PT/OT evaluation and placement/ Review of Systems Review of Systems: As reviewed above in HPI Exam Narrative: GENERAL: Elderly and frail, mildly tachypneic, not any acute distress and very tearful in affect. HEAD: [Normocephalic, atraumatic.] EYES: [PERRLA and EOMI.] ENT: Nares clear, no rhinorrhea or epistaxis. Mucous membranes moist. NECK: Supple. CHEST: [Clear to auscultation. No respiratory distress.] Speaks in clear sentences, painting occasionally and feeling anxious HEART: [Regular rate and rhythm]. No murmur heard. [Normal peripheral pulses.] ABDOMEN: [Soft, nondistended], [nontender], [No rigidity or guarding] EXTREMITIES: Normal range of motion. [No edema.] SKIN: Warm, dry, no rash. NEURO: Diffuse cogwheel rigidity with contractions of the lower extremities. No obvious focal deficits and able to move both arms and legs, no facial asymmetry or dysarthria, no facial droop. Alert and oriented [x3.] PSYCH: Anxious and tearful Objective Data Vital Signs Vital Signs: Vital Signs - 24 hr 04/19/25 14:00 04/19/25 16:00 04/19/25 16:00 Temperature Pulse Rate 84 85 Respiratory Rate Blood Pressure Pulse Oximetry Oxygen Delivery Room Air Fraction of Inspired Oxygen 04/19/25 16:07 04/19/25 18:00 04/19/25 20:20 Temperature 98.4 F 97.6 F Pulse Rate 83 84 81 Respiratory Rate 18 20 Blood Pressure 170/87 H 183/80 H Pulse Oximetry 97 97 Oxygen Delivery Fraction of Inspired Oxygen 04/19/25 20:58 04/19/25 23:12 04/20/25 04:22 Temperature 97.6 F Pulse Rate 82 79 Respiratory Rate 20 22 H Blood Pressure 187/98 H 180/89 H Pulse Oximetry 97 98 Oxygen Delivery Room Air Fraction of Inspired Oxygen 04/20/25 08:03 04/20/25 08:04 04/20/25 09:05 Temperature 97.7 F Pulse Rate 94 Respiratory Rate 18 Blood Pressure 191/98 H 192/96 H Pulse Oximetry 96 100 Oxygen Delivery Room Air Fraction of Inspired Oxygen 04/20/25 12:02 Temperature 98.3 F Pulse Rate 93 Respiratory Rate 18 Blood Pressure 117/62 Pulse Oximetry 98 Oxygen Delivery Fraction of Inspired Oxygen Intake/Output Intake/Output: Intake & Output 04/17/25 04/18/25 04/19/25 04/20/25 23:59 23:59 23:59 23:59 Intake Total 1999 935 660 Output Total 675 700 Balance 1875 260 -40 Meds/Results Medications: Active Medications Generic Name Dose Route Start Last Admin Trade Name Freq PRN Reason Stop Dose Admin Acetaminophen 650 mg 04/19/25 01:02 Acetaminophen 325 Mg Tablet PO Q4H PRN Mild Pain (1-3) or Fever Hydrocodone Bitart/Acetaminophen 1 tab 04/19/25 01:02 04/19/25 08:24 Hydrocodone/Acetaminophen (*Crx) 5-325 Mg Tablet PO 1 tab Q4H PRN Administration Pain Rated 4-6 Amantadine HCl 100 mg 04/19/25 09:00 04/20/25 08:37 Amantadine Hcl 100 Mg Capsule PO 100 mg BID GUY Administration Amlodipine Besylate 5 mg 04/20/25 09:00 04/20/25 08:37 Amlodipine Besylate 5 Mg Tablet PO 5 mg DAILY GUY Administration Calcium Carbonate 500 mg 04/19/25 09:00 04/20/25 08:37 Calcium Carbonate (Oscal) 500 Mg Tablet PO 500 mg DAILY GUY Administration Carbidopa/Levodopa 1 tablet 04/19/25 07:13 Carbidopa/Levodopa 25/100 Mg Tablet PO QHS PRN tremors Cyanocobalamin 1,000 mcg 04/19/25 09:00 04/20/25 08:37 Cyanocobalamin 1,000 Mcg Tablet PO 1,000 mcg DAILY GUY Administration Enoxaparin Sodium 40 mg 04/20/25 09:00 04/20/25 08:37 Enoxaparin 40 Mg/0.4 Ml Syringe SUB-Q 40 mg DAILY GUY Administration Mirabegron 25 mg 04/19/25 09:00 04/20/25 08:37 Mirabegron 25 Mg Er Tablet PO 25 mg DAILY GUY Administration Morphine Sulfate 2 mg 04/19/25 01:02 Morphine Sulfate (*Crx) 2 Mg/Ml Inj IV PUSH Q2H PRN Pain Rated 7-10 Multivitamins/Calcium 1 tablet 04/19/25 09:00 04/20/25 08:38 Therapeutic Multivitamins/Minerals Tab (*Bkc) PO 1 tablet DAILY GUY Administration Nonformulary Drug 0 cap 04/20/25 10:50 04/20/25 10:53 Carbidopa-Levodopa [ PO 05/20/25 10:49 1 cap Rytary] 1 Cap BID@1000,1800 GUY Administration Carbidopa-Levodopa [ 0 cap 04/20/25 14:00 Rytary] 48.75-195 Mg PO 05/20/25 13:59 Capsule, Extended BID@0600,1400 GUY Release Carbidopa-Levodopa [ 0 cap 04/20/25 22:00 Rytary] 48.75-195 Mg PO 05/20/25 21:59 Capsule, Extended HS@2200 GUY Release Ondansetron HCl 4 mg 04/19/25 01:02 Ondansetron Inj 4 Mg/2 Ml Vial IV PUSH Q4H PRN Nausea Senna/Docusate Sodium 1 tab 04/19/25 21:00 04/19/25 21:02 Senna/Docusate Sodium Tablet PO 1 tab HS GUY Administration Radiology Results: ITS Impressions Head CT 04/18/25 20:48 IMPRESSION: No acute intracranial process. Chest X-Ray 04/18/25 21:12 IMPRESSION: No acute cardiopulmonary process. Labs Labs: Laboratory Results - last 24 hr 04/20/25 03:55 WBC 8.1 RBC 4.20 Hgb 13.3 Hct 41.4 MCV 98.6 MCH 31.7 MCHC 32.1 RDW 13.2 Plt Count 297 MPV 9.7 Sodium 136 L Potassium 3.6 Chloride 102 Carbon Dioxide 27 Anion Gap 7 BUN 20 H D Creatinine 0.67 L Estim Creat Clear Calc 44 Estimated GFR > 60 Glucose 99 Calcium 9.8
[2025-04-20] MEDS: SENNA/DOCUSATE SODIUM TABLET 1 TAB PO (21:09)
[2025-04-21] VITALS (8 sets, daily range): BP systolic 126–186; BP diastolic 69–100; PULSE 85–91; RESP 16–22; TEMP 36.2–36.7; O2SAT 95–99
[2025-04-21] MEDS: CARBIDOPA LEVODOPA PO ×4 (05:53→21:24)
[2025-04-21 06:09] LABS: Hematocrit 38.0 % (37.0-47.0); Hemoglobin 12.2 g/dL (12.0-15.0); Mean Corpuscular HGB Conc 32.1 g/dl (32-36); Mean Corpuscular Hemoglobin 31.2 pg (26-34); Mean Corpuscular Volume 97.2 fl (80-100); Platelet Count Result 295 k/mm3 (150-375); Red Blood Count 3.91 M/mm3 (4.2-5.4); White Blood Count 7.4 K/mm3 (4.5-10.0)
[2025-04-21 06:38] LABS: Anion Gap 9 mmol/L (4-12); Blood Urea Nitrogen 24 mg/dL (7-17); Calcium 9.5 mg/dL (8.4-10.2); Carbon Dioxide 26 mmol/L (22-30); Chloride 102 mmol/L (98-107); Estimated CRCL calculation 39 ml/min; Estimated Glomerular Filt Rate > 60; Glucose 92 mg/dL (65-110); Potassium 3.6 mmol/L (3.4-5.0); Sodium 137 mmol/L (137-145)
--- NOTE | 2025-04-21 09:40 | PCOTNOTE ---
Attempted to see patient for OT evaluation. Patient reports she is waiting on her family to bring in her Parkinson's medication and she prefers to wait until she has that as it helps her move easier. Will continue to attempt.
[2025-04-21] MEDS: CYANOCOBALAMIN 1,000 MCG TABLET 1000 MCG PO (10:29)
[2025-04-21] MEDS: CALCIUM CARBONATE (OSCAL) 500 MG TABLET PO (10:29)
[2025-04-21] MEDS: MIRABEGRON 25 MG ER TABLET PO (10:29)
[2025-04-21] MEDS: THERAPEUTIC MULTIVITAMINS/MINERALS TAB (*BKC) 1 TABLET PO (10:29)
[2025-04-21] MEDS: AMANTADINE HCL 100 MG CAPSULE PO ×2 (10:30→17:37)
[2025-04-21] MEDS: ENOXAPARIN 40 MG/0.4 ML SYRINGE SUB-Q (10:31)
[2025-04-21] MEDS: HYDROcodone/acetaminophen (*CRX) 5-325 MG TABLET 1 TAB PO ×2 (10:37→15:35)
--- NOTE | 2025-04-21 12:14 | PM.IMPN ---
Progress Note: A&P Assessment and Plan (1) Parkinson's disease: Code(s): G20.A1 - Parkinson's disease without dyskinesia, without mention of fluctuations Status: Acute (2) Generalized weakness: Code(s): R53.1 - Weakness Status: Acute (3) Elevated troponin: Code(s): R79.89 - Other specified abnormal findings of blood chemistry Status: Acute (4) Hypertensive emergency without congestive heart failure: Code(s): I16.1 - Hypertensive emergency Status: Acute (5) Cystocele with uterine prolapse: Code(s): N81.4 - Uterovaginal prolapse, unspecified Status: Acute (6) Dyskinesia: Code(s): G24.9 - Dystonia, unspecified Status: Acute (7) Osteoporosis: Code(s): M81.0 - Age-related osteoporosis without current pathological fracture Status: Acute (8) Weakness: Code(s): R53.1 - Weakness Status: Acute (9) HTN (hypertension), benign: Code(s): I10 - Essential (primary) hypertension Status: Acute Plan weakness, frequent fall PT/OT possible placement HTN hold midodrine continue to monitor elevated troponin in setting of HTN trending down continue to monitor Parkinson disease [employer] meds mild hyponatremia continue to monitor overactive bladder Myrbetriq DVT PPX Lovenox malnutrition consult dietitian Subjective Date/time seen: 04/21/25 12:14 Interval history: per HPI: patient with history of Parkinson's dementia, dyskinesia, hypotension on midodrine presented with weakness and difficulty with ambulating for several moths that has been getting worse recently. she also has been having several episodes of fall because of weakness . past week she feel down 2 times. denies any head injury or loss of consciousness. patient denies any chest pain,SOB,Cough,Abd pain, urinary symptoms. denies any focal neurological symptoms. presented to Er for further management. in the Er Bp was elevated and received hydralazine.lab tests grossly unremarkable except for troponin which was mildly elevated and remained flat. she denies any chest pain, EKG reviewed no acute ischemic changes. she was admitted for further work up and possible placement. 04/21/25 Patient was seen and examined at bedside. she is feeling better. her weakness is better. denies any chest pain, abd pain, N/V. Pending PT/OT evaluation and placement/ reviewed lab test grossly unremarkable Review of Systems Review of Systems: As reviewed above in HPI Exam Narrative: GENERAL: Elderly and frail, mildly tachypneic, not any acute distress and very tearful in affect. HEAD: [Normocephalic, atraumatic.] EYES: [PERRLA and EOMI.] ENT: Nares clear, no rhinorrhea or epistaxis. Mucous membranes moist. NECK: Supple. CHEST: [Clear to auscultation. No respiratory distress.] Speaks in clear sentences, painting occasionally and feeling anxious HEART: [Regular rate and rhythm]. No murmur heard. [Normal peripheral pulses.] ABDOMEN: [Soft, nondistended], [nontender], [No rigidity or guarding] EXTREMITIES: Normal range of motion. [No edema.] SKIN: Warm, dry, no rash. NEURO: Diffuse cogwheel rigidity with contractions of the lower extremities. No obvious focal deficits and able to move both arms and legs, no facial asymmetry or dysarthria, no facial droop. Alert and oriented [x3.] PSYCH: Anxious and tearful Objective Data Vital Signs Vital Signs: Vital Signs - 24 hr 04/20/25 14:10 04/20/25 16:00 04/20/25 20:45 Temperature 97.4 F L 97.2 F L Pulse Rate 88 87 Respiratory Rate 20 20 Blood Pressure 121/68 178/79 H Pulse Oximetry 98 96 Oxygen Delivery Room Air 04/21/25 05:35 04/21/25 06:41 Temperature 97.2 F L Pulse Rate 86 Respiratory Rate 16 Blood Pressure 166/94 H Pulse Oximetry 98 Oxygen Delivery Intake/Output Intake/Output: Intake & Output 04/18/25 04/19/25 04/20/25 04/21/25 23:59 23:59 23:59 23:59 Intake Total 1999 935 1300 340 Output Total 125 675 700 Balance 1875 260 600 340 Meds/Results Medications: Active Medications Generic Name Dose Route Start Last Admin Trade Name Freq PRN Reason Stop Dose Admin Acetaminophen 650 mg 04/19/25 01:02 Acetaminophen 325 Mg Tablet PO Q4H PRN Mild Pain (1-3) or Fever Hydrocodone Bitart/Acetaminophen 1 tab 04/19/25 01:02 04/21/25 10:37 Hydrocodone/Acetaminophen (*Crx) 5-325 Mg Tablet PO 1 tab Q4H PRN Administration Pain Rated 4-6 Amantadine HCl 100 mg 04/19/25 09:00 04/21/25 10:30 Amantadine Hcl 100 Mg Capsule PO 100 mg BID GUY Administration Amlodipine Besylate 5 mg 04/20/25 09:00 04/21/25 10:29 Amlodipine Besylate 5 Mg Tablet PO 5 mg DAILY GUY Administration Calcium Carbonate 500 mg 04/19/25 09:00 04/21/25 10:29 Calcium Carbonate (Oscal) 500 Mg Tablet PO 500 mg DAILY GUY Administration Carbidopa/Levodopa 1 tablet 04/19/25 07:13 Carbidopa/Levodopa 25/100 Mg Tablet PO QHS PRN tremors Cyanocobalamin 1,000 mcg 04/19/25 09:00 04/21/25 10:29 Cyanocobalamin 1,000 Mcg Tablet PO 1,000 mcg DAILY GUY Administration Enoxaparin Sodium 40 mg 04/20/25 09:00 04/21/25 10:31 Enoxaparin 40 Mg/0.4 Ml Syringe SUB-Q 40 mg DAILY GUY Administration Mirabegron 25 mg 04/19/25 09:00 04/21/25 10:29 Mirabegron 25 Mg Er Tablet PO 25 mg DAILY GUY Administration Morphine Sulfate 2 mg 04/19/25 01:02 Morphine Sulfate (*Crx) 2 Mg/Ml Inj IV PUSH Q2H PRN Pain Rated 7-10 Multivitamins/Calcium 1 tablet 04/19/25 09:00 04/21/25 10:29 Therapeutic Multivitamins/Minerals Tab (*Bkc) PO 1 tablet DAILY GUY Administration Nonformulary Drug 0 cap 04/20/25 10:50 04/20/25 17:31 Carbidopa-Levodopa [ PO 05/20/25 10:49 1 cap Rytary] 1 Cap BID@1000,1800 GUY Administration Carbidopa-Levodopa [ 0 cap 04/20/25 14:00 04/21/25 05:53 Rytary] 48.75-195 Mg PO 05/20/25 13:59 2 cap Capsule, Extended BID@0600,1400 GUY Administration Release Carbidopa-Levodopa [ 0 cap 04/20/25 22:00 04/20/25 21:23 Rytary] 48.75-195 Mg PO 05/20/25 21:59 3 cap Capsule, Extended HS@2200 GUY Administration Release Ondansetron HCl 4 mg 04/19/25 01:02 Ondansetron Inj 4 Mg/2 Ml Vial IV PUSH Q4H PRN Nausea Senna/Docusate Sodium 1 tab 04/19/25 21:00 04/20/25 21:09 Senna/Docusate Sodium Tablet PO 1 tab HS GUY Administration Radiology Results: ITS Impressions Head CT 04/18/25 20:48 IMPRESSION: No acute intracranial process. Chest X-Ray 04/18/25 21:12 IMPRESSION: No acute cardiopulmonary process. Labs Labs: Laboratory Results - last 24 hr 04/21/25 05:33 WBC 7.4 RBC 3.91 L Hgb 12.2 Hct 38.0 MCV 97.2 MCH 31.2 MCHC 32.1 RDW 13.1 Plt Count 295 MPV 10.0 Sodium 137 Potassium 3.6 Chloride 102 Carbon Dioxide 26 Anion Gap 9 BUN 24 H Creatinine 0.76 Estim Creat Clear Calc 39 Estimated GFR > 60 Glucose 92 Calcium 9.5
--- NOTE | 2025-04-21 15:51 | PCPTNOTE ---
Attempted to see patient for PT, however patient declined due to 8/10 leg and feet pain. Per RN patient just got pain medication.
[2025-04-21] MEDS: [UNRECOGNIZED DRUG - OTHER] PO (17:37)
[2025-04-21] MEDS: SENNA/DOCUSATE SODIUM TABLET 1 TAB PO (21:22)
[2025-04-22 06:00] VITALS: BP 155/90; PULSE 93; RESP 16; TEMP 36; O2SAT 98
[2025-04-22] MEDS: CARBIDOPA LEVODOPA PO ×5 (06:00→22:40)
[2025-04-22 06:17] LABS: Hematocrit 37.5 % (37.0-47.0); Hemoglobin 12.1 g/dL (12.0-15.0); Mean Corpuscular HGB Conc 32.3 g/dl (32-36); Mean Corpuscular Hemoglobin 31.3 pg (26-34); Mean Corpuscular Volume 97.2 fl (80-100); Platelet Count Result 292 k/mm3 (150-375); Red Blood Count 3.86 M/mm3 (4.2-5.4); White Blood Count 8.2 K/mm3 (4.5-10.0)
[2025-04-22 06:42] LABS: Anion Gap 8 mmol/L (4-12); Blood Urea Nitrogen 30 mg/dL (7-17); Calcium 9.5 mg/dL (8.4-10.2); Carbon Dioxide 27 mmol/L (22-30); Chloride 97 mmol/L (98-107); Estimated CRCL calculation 36 ml/min; Estimated Glomerular Filt Rate > 60; Glucose 96 mg/dL (65-110); Potassium 3.7 mmol/L (3.4-5.0); Sodium 132 mmol/L (137-145)
[2025-04-22] MEDS: CYANOCOBALAMIN 1,000 MCG TABLET 1000 MCG PO (08:10)
[2025-04-22] MEDS: CALCIUM CARBONATE (OSCAL) 500 MG TABLET PO (08:11)
[2025-04-22] MEDS: THERAPEUTIC MULTIVITAMINS/MINERALS TAB (*BKC) 1 TABLET PO (08:11)
[2025-04-22] MEDS: AMANTADINE HCL 100 MG CAPSULE PO ×2 (08:11→16:57)
[2025-04-22] MEDS: MIRABEGRON 25 MG ER TABLET PO (08:11)
[2025-04-22] MEDS: ENOXAPARIN 40 MG/0.4 ML SYRINGE SUB-Q (08:12)
[2025-04-22] MEDS: SENNA/DOCUSATE SODIUM TABLET 1 TAB PO ×2 (08:19→16:57)
[2025-04-22] MEDS: [UNRECOGNIZED DRUG - OTHER] PO ×2 (09:41→16:59)
--- NOTE | 2025-04-22 13:13 | P.PNIM_ITS ---
Progress Note: A&P Assessment and Plan (1) Parkinson's disease: Code(s): G20.A1 - Parkinson's disease without dyskinesia, without mention of fluctuations Status: Acute (2) Generalized weakness: Code(s): R53.1 - Weakness Status: Acute (3) Elevated troponin: Code(s): R79.89 - Other specified abnormal findings of blood chemistry Status: Acute (4) Hypertensive emergency without congestive heart failure: Code(s): I16.1 - Hypertensive emergency Status: Acute (5) Cystocele with uterine prolapse: Code(s): N81.4 - Uterovaginal prolapse, unspecified Status: Acute (6) Dyskinesia: Code(s): G24.9 - Dystonia, unspecified Status: Acute (7) Osteoporosis: Code(s): M81.0 - Age-related osteoporosis without current pathological fracture Status: Acute (8) Weakness: Code(s): R53.1 - Weakness Status: Acute (9) HTN (hypertension), benign: Code(s): I10 - Essential (primary) hypertension Status: Acute Plan weakness, frequent fall PT/OT pending placement HTN hold midodrine continue to monitor elevated troponin in setting of HTN trending down continue to monitor Parkinson disease [employer] meds mild hyponatremia continue to monitor overactive bladder Myrbetriq DVT PPX Lovenox malnutrition consult dietitian Subjective Date/time seen: 04/22/25 13:13 Interval history: per HPI: patient with history of Parkinson's dementia, dyskinesia, hypotension on midodrine presented with weakness and difficulty with ambulating for several mo ths that has been getting worse recently. she also has been having several episodes of fall because of weakness . past week she feel down 2 times. denies any head injury or loss of consciousness. patient denies any chest pain,SOB,Cough,Abd pain, urinary symptoms. denies any focal neurological symptoms. presented to Er for further management. in the Er Bp was elevated and received hydralazine.lab tests grossly unremarkable except for troponin which was mildly elevated and remained flat. she denies any chest pain, EKG reviewed no acute ischemic changes. she was admitted for further work up and possible placement. 04/21/25 Patient was seen and examined at bedside. she is feeling better. her weakness is better. denies any chest pain, abd pain, N/V. Pending PT/OT evaluation and placement/ reviewed lab test grossly unremarkable 04/22/25 Patient was seen and examined at bedside. she is feeling better. her weakness is better. denies any chest pain, abd pain, N/V. waiting placement Review of Systems Review of Systems: As reviewed above in HPI Exam Narrative: GENERAL: Elderly and frail, mildly tachypneic, not any acute distress and very tearful in affect. HEAD: [Normocephalic, atraumatic.] EYES: [PERRLA and EOMI.] ENT: Nares clear, no rhinorrhea or epistaxis. Mucous membranes moist. NECK: Supple. CHEST: [Clear to auscultation. No respiratory distress.] Speaks in clear sentences, painting occasionally and feeling anxious HEART: [Regular rate and rhythm]. No murmur heard. [Normal peripheral pulses.] ABDOMEN: [Soft, nondistended], [nontender], [No rigidity or guarding] EXTREMITIES: Normal range of motion. [No edema.] SKIN: Warm, dry, no rash. NEURO: Diffuse cogwheel rigidity with contractions of the lower extremities. No obvious focal deficits and able to move both arms and legs, no facial asymmetry or dysarthria, no facial droop. Alert and oriented [x3.] PSYCH: Anxious and tearful Objective Data Vital Signs Vital Signs: Vital Signs - 24 hr 04/21/25 14:00 04/21/25 15:05 04/21/25 20:00 Temperature 98.1 F 97.9 F Pulse Rate 91 85 Respiratory Rate 22 H 20 Blood Pressure 126/69 185/90 H Pulse Oximetry 99 95 Oxygen Delivery Room Air 04/21/25 21:24 04/21/25 21:32 04/21/25 22:36 Temperature Pulse Rate Respiratory Rate Blood Pressure 180/100 H 186/100 H Pulse Oximetry 95 Oxygen Delivery Room Air 04/21/25 23:45 04/22/25 06:00 04/22/25 08:00 Temperature 96.8 F L Pulse Rate 93 Respiratory Rate 16 Blood Pressure 130/70 155/90 H Pulse Oximetry 98 Oxygen Delivery Room Air Intake/Output Intake/Output: Intake & Output 04/19/25 04/20/25 04/21/25 04/22/25 23:59 23:59 23:59 23:59 Intake Total 935 1300 1500 390 Output Total 675 700 300 650 Balance 727 749 2132 -260 Meds/Results Medications: Active Medications Generic Name Dose Route Start Last Admin Trade Name Jessika PRN Reason Stop Dose Admin Acetaminophen 650 mg 04/19/25 01:02 Acetaminophen 325 Mg Tablet PO Q4H PRN Mild Pain (1-3) or Fever Hydrocodone Bitart/Acetaminophen 1 tab 04/19/25 01:02 04/21/25 15:35 Hydrocodone/Acetaminophen (*Crx) 5-325 Mg Tablet PO 1 tab Q4H PRN Administration Pain Rated 4-6 Amantadine HCl 100 mg 04/19/25 09:00 04/22/25 08:11 Amantadine Hcl 100 Mg Capsule PO 100 mg BID GUY Administration Amlodipine Besylate 5 mg 04/20/25 09:00 04/22/25 08:10 Amlodipine Besylate 5 Mg Tablet PO 5 mg DAILY GUY Administration Calcium Carbonate 500 mg 04/19/25 09:00 04/22/25 08:11 Calcium Carbonate (Oscal) 500 Mg Tablet PO 500 mg DAILY GUY Administration Carbidopa/Levodopa 1 tablet 04/19/25 07:13 Carbidopa/Levodopa 25/100 Mg Tablet PO QHS PRN tremors Cyanocobalamin 1,000 mcg 04/19/25 09:00 04/22/25 08:10 Cyanocobalamin 1,000 Mcg Tablet PO 1,000 mcg DAILY GUY Administration Enoxaparin Sodium 40 mg 04/20/25 09:00 04/22/25 08:12 Enoxaparin 40 Mg/0.4 Ml Syringe SUB-Q 40 mg DAILY GUY Administration Mirabegron 25 mg 04/19/25 09:00 04/22/25 08:11 Mirabegron 25 Mg Er Tablet PO 25 mg DAILY GUY Administration Morphine Sulfate 2 mg 04/19/25 01:02 Morphine Sulfate (*Crx) 2 Mg/Ml Inj IV PUSH Q2H PRN Pain Rated 7-10 Multivitamins/Calcium 1 tablet 04/19/25 09:00 04/22/25 08:11 Therapeutic Multivitamins/Minerals Tab (*Bkc) PO 1 tablet DAILY GUY Administration Nonformulary Drug 0 cap 04/20/25 10:50 04/22/25 09:41 Carbidopa-Levodopa [ PO 05/20/25 10:49 1 cap Rytary] 1 Cap BID@1000,1800 GUY Administration Carbidopa-Levodopa [ 0 cap 04/20/25 14:00 04/22/25 13:10 Rytary] 48.75-195 Mg PO 05/20/25 13:59 2 cap Capsule, Extended BID@0600,1400 GUY Administration Release Carbidopa-Levodopa [ 0 cap 04/20/25 22:00 04/21/25 21:24 Rytary] 48.75-195 Mg PO 05/20/25 21:59 3 cap Capsule, Extended HS@2200 GUY Administration Release Ondansetron HCl 4 mg 04/19/25 01:02 Ondansetron Inj 4 Mg/2 Ml Vial IV PUSH Q4H PRN Nausea Senna/Docusate Sodium 1 tab 04/22/25 09:00 04/22/25 08:19 Senna/Docusate Sodium Tablet PO 1 tab BID GUY Administration Radiology Results: ITS Impressions Head CT 04/18/25 20:48 IMPRESSION: No acute intracranial process. Chest X-Ray 04/18/25 21:12 IMPRESSION: No acute cardiopulmonary process. Labs Labs: Laboratory Results - last 24 hr 04/22/25 05:58 WBC 8.2 RBC 3.86 L Hgb 12.1 Hct 37.5 MCV 97.2 MCH 31.3 MCHC 32.3 RDW 13.2 Plt Count 292 MPV 9.8 Sodium 132 L Potassium 3.7 Chloride 97 L Carbon Dioxide 27 Anion Gap 8 BUN 30 H Creatinine 0.83 Estim Creat Clear Calc 36 Estimated GFR > 60 Glucose 96 Calcium 9.5
[2025-04-22] MEDS: HYDROcodone/acetaminophen (*CRX) 5-325 MG TABLET 1 TAB PO (13:17)
[2025-04-22 14:00] VITALS: BP 158/84; PULSE 90; RESP 16; TEMP 36.5; O2SAT 98
[2025-04-22 21:10] VITALS: BP 164/75; PULSE 84; RESP 18; TEMP 36.9; O2SAT 97
[2025-04-22] MEDS: CARBIDOPA/LEVODOPA 25/100 MG TABLET 1 TABLET PO (22:09)
[2025-04-23 05:45] VITALS: BP 185/98; PULSE 89; RESP 20; TEMP 36.7; O2SAT 98
[2025-04-23] MEDS: CARBIDOPA LEVODOPA PO ×3 (05:50→13:41)
[2025-04-23] MEDS: CALCIUM CARBONATE (OSCAL) 500 MG TABLET PO (09:01)
[2025-04-23] MEDS: SENNA/DOCUSATE SODIUM TABLET 1 TAB PO (09:02)
[2025-04-23] MEDS: MIRABEGRON 25 MG ER TABLET PO (09:02)
[2025-04-23] MEDS: CYANOCOBALAMIN 1,000 MCG TABLET 1000 MCG PO (09:02)
[2025-04-23] MEDS: THERAPEUTIC MULTIVITAMINS/MINERALS TAB (*BKC) 1 TABLET PO (09:02)
[2025-04-23] MEDS: AMANTADINE HCL 100 MG CAPSULE PO (09:02)
[2025-04-23] MEDS: ENOXAPARIN 40 MG/0.4 ML SYRINGE SUB-Q (09:02)
[2025-04-23] MEDS: [UNRECOGNIZED DRUG - OTHER] PO (09:04)
--- NOTE | 2025-04-23 12:37 | P.DS_ITS ---
DS: Admitting Diagnosis Discharge Date 04/23/25 Admitting Diagnosis weakness DS: Discharge Diagnosis Discharge Diagnosis (1) Parkinson's disease: Code(s): G20.A1 - Parkinson's disease without dyskinesia, without mention of fluctuations Status: Acute (2) Generalized weakness: Code(s): R53.1 - Weakness Status: Acute (3) Elevated troponin: Code(s): R79.89 - Other specified abnormal findings of blood chemistry Status: Acute (4) Hypertensive emergency without congestive heart failure: Code(s): I16.1 - Hypertensive emergency Status: Acute (5) Cystocele with uterine prolapse: Code(s): N81.4 - Uterovaginal prolapse, unspecified Status: Acute (6) Dyskinesia: Code(s): G24.9 - Dystonia, unspecified Status: Acute (7) Osteoporosis: Code(s): M81.0 - Age-related osteoporosis without current pathological fracture Status: Acute (8) Weakness: Code(s): R53.1 - Weakness Status: Acute (9) HTN (hypertension), benign: Code(s): I10 - Essential (primary) hypertension Status: Acute Plan weakness, frequent fall PT/OT pending placement HTN hold midodrine started on Amlodipin continue to monitor elevated troponin in setting of HTN trending down continue to monitor Parkinson disease PATIENT SUPPORT ASSISTANT meds mild hyponatremia continue to monitor overactive bladder Myrbetriq DVT PPX Lovenox malnutrition consult dietitian DS: Summary Hospital Course Hospital Course: per HPI: patient with history of Parkinson's dementia, dyskinesia, hypotension on midodrine presented with weakness and difficulty with ambulating for several moths that has been getting worse recently. she also has been having several episodes of fall because of weakness . past week she feel down 2 times. denies any head injury or loss of consciousness. patient denies any chest pain,SOB,Cough,Abd pain, urinary symptoms. denies any focal neurological symptoms. presented to Er for further management. in the Er Bp was elevated and received hydralazine.lab tests grossly unremarkable except for troponin which was mildly elevated and remained flat. she denies any chest pain, EKG reviewed no acute ischemic changes. she was admitted for further work up and possible placement. 04/21/25 Patient was seen and examined at bedside. she is feeling better. her weakness is better. denies any chest pain, abd pain, N/V. Pending PT/OT evaluation and placement/ reviewed lab test grossly unremarkable 04/23/25 Patient was seen and examined at bedside. she is feeling better. her weakness is better. denies any chest pain, abd pain, N/V. will discharge to the rehab Status at Discharge Overall status at discharge: patient is progressing back to baseline Time Spent with Patient Time attestation: Total time spent providing and/or coordinating discharge services: Time spent: Greater than 30 minutes Exam Narrative: GENERAL: Elderly and frail, mildly tachypneic, not any acute distress and very tearful in affect. HEAD: [Normocephalic, atraumatic.] EYES: [PERRLA and EOMI.] ENT: Nares clear, no rhinorrhea or epistaxis. Mucous membranes moist. NECK: Supple. CHEST: [Clear to auscultation. No respiratory distress.] Speaks in clear sentences, painting occasionally and feeling anxious HEART: [Regular rate and rhythm]. No murmur heard. [Normal peripheral pulses.] ABDOMEN: [Soft, nondistended], [nontender], [No rigidity or guarding] EXTREMITIES: Normal range of motion. [No edema.] SKIN: Warm, dry, no rash. NEURO: Diffuse cogwheel rigidity with contractions of the lower extremities. No obvious focal deficits and able to move both arms and legs, no facial asymmetry or dysarthria, no facial droop. Alert and oriented [x3.] PSYCH: Anxious and tearful Discharge Plan Discharge Attending physician on discharge: Sandoval Loera Consulting providers: Sandoval Loera Discharging Clinician: Sandoval Loera Anticipated Discharge Date/Time: 04/23/25 12:36 Patient Disposition: SNF Activity: as tolerated Diet: heart healthy Discharge Instructions: follow with PCP in one week and neurologist in 2-4 weeks check your blood pressure and heart rate regularly and report to the PCP Patient Language: Yakut Stand Alone Forms: General Discharge Information Follow-up/Referrals: UNKNOWN,DOCTOR [Primary Care Provider] - 1 Week Discharge Medications: New hydrocodone-acetaminophen 5-325 mg Tablet 1 tablet PO Q4H PRN (Reason: Pain Rated 4-6) Qty: 15 0RF amlodipine 10 mg Tablet 10 mg PO DAILY Qty: 30 0RF Continued carbidopa-levodopa 25-100 mg tablet 1 tablet PO QHS PRN (Reason: tremors) Myrbetriq 25 mg tablet extended release 24 hr 25 mg PO DAILY Rytary 48.75-195 mg capsule, extended release 1 cap PO TID Rx Instructions: divide evenly over waking hours amantadine HCl 100 mg capsule 100 mg PO BID calcium 500 mg tablet 500 mg PO DAILY mecobalamin (vitamin B12) 1,000 mcg PO DAILY magnesium 200 mg PO DAILY multivit with min-folic acid [Adult Multivitamin Gummies] 1 tablet PO DAILY clobetasol 0.05 % ointment 1 applic topical PRN Discontinued midodrine 5 mg tablet 12.5 mg PO TID Rx Instructions: do not give last dose of day after 6PM or within 4 hrs of bedtime hydrocodone-acetaminophen 2.5-325 mg tablet 1 tablet PO QHS PRN (Reason: pain) Date of admission: 04/19/25 01:02 Primary Care Provider: UNKNOWN,DOCTOR Admitting Provider: Chantel Levy Attending physician on admission: Chantel Levy Condition: Stable
[2025-04-23 13:12] VITALS: BP 133/65; PULSE 92; O2SAT 97
== END 2025-04-23 15:15 | DRG 305 ==
LOC: ANHED 20:32 → ANHIMU 04-19 03:17 → ANH3MEDSUR 04-22 13:19 → ANHIMU 04-25 09:04
PROVIDERS: Admitting Provider General Practice; Emergency Provider Student in an Organized Health Care Education/Training Program; Visit Provider Internal Medicine
DX: I16.1 Hypertensive emergency (principal); E46 Unspecified protein-calorie malnutrition; Z68.1 Body mass index [BMI] 19.9 or less, adult; I10 Essential (primary) hypertension; R79.89 Other specified abnormal findings of blood chemistry; R53.1 Weakness; G20.B1 Parkinson's disease with dyskinesia, without mention of fluctuations; F02.80 Dementia in other diseases classified elsewhere, unspecified severity, without behavioral disturbance, psychotic disturbance, mood disturbance, and anxiety; I95.9 Hypotension, unspecified; N81.4 Uterovaginal prolapse, unspecified; N32.81 Overactive bladder; M81.0 Age-related osteoporosis without current pathological fracture; R29.6 Repeated falls; Z79.899 Other long term (current) drug therapy; Z88.2 Allergy status to sulfonamides
CPT/HCPCS: 36415; 70450; 71046; 80048; 80053; 81001; 83735; 84484; 85025; 85027; 93005; 96361; 96374; 96375; 96376; 97110; 97116; 97162; 97165; 97530; 99285; A9270; J0360; J1650; J2270; J3360; J7120